=== PATIENT | male | born 1980 | race Caucasian/White ===

== ENCOUNTER 2017-06-04 19:32 | Emergency (ER) | payer OTHER ==
[~2017-06-04] VITALS: Ht 175.3 cm; Wt 78.7 kg
[2017-06-04 20:04] VITALS: BP 123/80; PULSE 100; TEMP 37; O2SAT 99; Ht 175.3 cm; Wt 78.7 kg
[2017-06-04] MEDS ORDERED: PROPARACAINE HCL 0.5% OP SOLN 15 ML BTL OP STA (20:13)
[2017-06-04] MEDS ORDERED: ARTIFICIAL TEARS OP OINT 3.5 GM TUBE OP ONE (21:45)
--- NOTE | 2017-06-05 01:08 | EMERGENCY ROOM VISIT NOTE ---
History First contact with patient: 20:10 Chief Complaint: EYE ASSESSMENT Stated Complaint: USED MOTOR OIL GOT INTO LEFT EYE History of Present Illness The patient is a 36 year old male who presents to the Emergency Room with complaints of getting use motor oil in his left eye. The patient reports that this injury happened at work at approximately 1700. He was working underneath a vehicle with internal engine problems, and as he was draining the oil, it splashed onto his face. The patient did try to irrigate his eye. He is concerned because there was all kind of metal flakes in the oil. Other than a burning sensation of the eye and mild hazing shortly after exposure, he denies any significant pain. Tetanus immunization is up-to-date. Review of Systems 10 system review was performed and was negative except for pertinent positives and negatives as indicated in history of present illness Past Medical/Surgical History Medical Problems: (1) No significant past medical history Surgical Problems: (1) No history of previous surgery Family History Unremarkable Social History Smoking Status: Current Every Day Smoker Alcohol Use: occasionally Marital Status: single Occupation Status: employed Current/Historical Medications No Active Prescriptions or Reported Meds Physical Exam Vital Signs Date Time Temp Pulse Resp B/P (MAP) Pulse Ox O2 Delivery O2 Flow Rate FiO2 06/04/17 20:04 37.0 100 18 123/80 99 Room Air Right Eye Acuity: 20/15 Left Eye Acuity: 20/25 Physical Exam CONSTITUTIONAL: Healthy and well nourished. Alert and oriented X 3 with positive affect. Patient does not appear in any acute distress. HEENT: Patient has used motor oil mostly on the left side of his face. Pupils equal, round and reactive. No conjunctival injection or tearing/drainage from the eye. EOMs intact without discomfort. No subconjunctival hemorrhage. NECK: Full active range of motion without discomfort. RESPIRATORY: Clear to auscultation bilaterally with no wheezing, crackles, rhonchi or stridor. INTEGUMENTARY: No rash or other significant dermatologic conditions noted. NEUROLOGIC: Facial sensations are intact. Medical Decision & Procedures Medications Administered Medications (Trade) Dose Ordered Sig/Grover Route Start Time Stop Time Status Last Admin Dose Admin Proparacaine HCl (Alcaine 0.5% Oph Soln) 2 drops NOW STAT OP 06/04/17 20:13 06/04/17 20:15 DC 9/21/17 21:06 2 DROPS Artificial Tears (Lacri-Lube Oph Oint) 1 appln NOW ONCE OP 06/04/17 21:45 06/04/17 21:46 DC 06/04/17 21:45 1 APPLN Procedure Dayday lens irrigation was performed after presentation to his room. 2 drops of Alcaine were instilled into the eye before Dayday lens insertion. The eye was then irrigated using a liter of normal saline. Slit lamp and fluorescein exam did not show any evidence for corneal abrasions. No metallic foreign bodies are noted with eversion of the lower or upper eyelids. ED Course Patient history and physical exam were performed. Nurse's notes were reviewed. Vital signs were reviewed and were normal. Dayday lens irrigation was performed. Slit lamp and fluorescein exam were also performed and were normal. The patient was provided Lacri-Lube ointment for comfort. He was encouraged to intermittently apply an ice pack to the eye for swelling. Ibuprofen or Tylenol as needed for pain. The patient was provided contact information for Dr. Sen, yarn mercerizer operator clinical education academic coordinator should he have any persistent eye discomfort , visual demise or other concerns. The patient was happy with plan of care, and denied any discomfort at the time of discharge. Medical Decision Medication Reconcilliation Current Medication List: was personally reviewed by me Blood Pressure Screening Patient's blood pressure: Normal blood pressure Impression Primary Impression: Organic liquid splash to left eye Additional Impression: Work related injury Departure Information Prescriptions No Active Prescriptions or Reported Meds Referrals No Doctor, Assigned (PCP) Patient Instructions My [facility] Health Problem Qualifiers
== END 2017-06-04 21:53 | disposition home or self-care (01) ==
LOC: C.EDB 19:35 → C.EDD 21:53
DX: Z77.098 Contact with and (suspected) exposure to other hazardous, chiefly nonmedicinal, chemicals (principal); Y99.0 Civilian activity done for income or pay; F17.200 Nicotine dependence, unspecified, uncomplicated

== ENCOUNTER 2024-10-08 17:17 | Observation (INO) ==
--- OUTSIDE RECORDS SUMMARY | 2024-10-08 17:21 | External Medical Summary ---
Author Name Unknown Address Unknown Organization [id number]:[facility] [place] - [address] [place] [address] Laboratory Report Ordering Provider Test Date Status 06/15/2024 10:05:12 Final Observation Date Value Abnormality Reference (Units ) Status BUN 06/15/2024 10:05:12 10 6-20 (mg/dL) Final Creatinine 06/15/2024 10:05:12 1.0 0.6-1.2 (mg/dL) Final Glomerular filtration rate/1.73 sq M.predicted [Volume Rate/Area] in Serum, Plasma or Blood by Creatinine-based formula (CKD-EPI) 06/15/2024 10:05:12 >90 >=60 (mL/min) Final eGFR is calculated based on the CKD-EPI 2020 equation. Sodium 06/15/2024 10:05:12 140 135-146 (m mol/L) Final Potassium 06/15/2024 10:05:12 5.0 3.5-5.1 (m mol/L) Final Cl 06/15/2024 10:05:12 102 98-107 (mm ol/L) Final CO2 06/15/2024 10:05:12 28 22-32 (mmo l/L) Final Anion gap 06/15/2024 10:05:12 10 7-15 (mmol /L) Final Glucose 06/15/2024 10:05:12 97 70-120 (mg /dL) Final Albumin 06/15/2024 10:05:12 5.1 Above high normal 3. 8-5.0 (g/dL) Final AST (Aspartate aminotransferase) 06/15/2024 10:05:12 24 10-50 (U/L) Fin al Alk Phos 06/15/2024 10:05:12 75 35-130 (U/ L) Final Bilirubin, Total 06/15/2024 10:05:12 0.6 <=1 .2 (mg/dL) Final Calcium 06/15/2024 10:05:12 10.0 8.4-10.2 ( mg/dL) Final Protein 06/15/2024 10:05:12 7.1 6.0-8.3 (g /dL) Final ALT (Alanine aminotransferase) 06/15/2024 10:05:12 44 10-50 (U/L) Cristhian gould Performing Location [facility] [place] - [address] [facility] [address]
--- OUTSIDE RECORDS SUMMARY | 2024-10-08 17:21 | External Medical Summary | Summary of Care ---
Author Name Unknown Organization [facility] Address [address] [place] [address] Phone [phone] Care Team Providers Care Fbi Investigator Name Role Phone Unavailable Primary Care Provider Unavailabl e Reason for Referral * Evaluate & Treat - Unlimited Visits (Within 10 days (routine)) - Pending Review Specialty Diagnoses / Procedures Referred By Patsy snyder Referred To Contact Orthopaedic Surgery / Orthopedics Diagnoses Carpal tunnel syndrome of left wrist Paul Brandon MD [address] [place] [address] Referral ID Status Reason Start Date Expiration Date Visits Requested Visits Authorized [id number] Pending Review Specialty Services Required 06/15/[phone] Question Answer Referral Priority Within 10 days (routine) Where should this appointment be scheduled? [facility] What body part is the patient being seen for? Hand What condition is the patient being seen for? Weakness/Numbness/Tingling Comments Referred to Dr. Rod (orthopaedics surgery, hand) Reason for Visit * Reason Comments NEW PATIENT Pain L shoulder * Evaluate & Treat - Unlimited Visits (Within 10 days (routine)) - Pending Review Specialty Diagnoses / Procedures Referred By Patsy snyder Referred To Contact Sports Medicine / Orthopedics Diagnoses Chronic left shoulder pain Tremaine Daniels MD [address] [place] [address] Referral ID Status Reason Start Date Expiration Date Visits Requested Visits Authorized [id number] Pending Review Specialty Services Required 06/01/[phone] Encounter Details Date Type Department Care Team (Late st Contact Info) Description 06/15/2024 9:00 AM EDT Office Visit Orthopaedics [facility] [address] [place] [address] Paul Brandon MD [address] [place] [address] Carpal tunnel syndrome of left wrist*; Chronic left shoulder pain Allergies Active Allergy Reactions Criticality Noted Date Comments Penicillins 07/08/2001 Light headed documented as of this encounter (statuses as of 06/15/2024) Medications No known medicationsdocumented as of this encounter (statuses as of 06/15/2024) Active Problems Problem Noted Date Diagnosed Date Chronic left shoulder pain 08/07/2017 Rotator cuff syndrome of left shoulder 7 Alcohol ingestion, 1-4 drinks per day 05/15/2015 Tobacco use disorder 05/15/2015 Chews tobacco 05/15/2015 documented as of this encounter (statuses as of 06/15/2024) Resolved Problems Problem Noted Date Diagnosed Date Resolved Date Left shoulder pain 05/15/2015 7 Depression 05/15/2015 08/07/2017 ADVANCE DIRECTIVE INFORMATION 09/26/2005 08/07/2017 Tobacco use disorder 12/21/2004 015 documented as of this encounter (statuses as of 06/15/2024) Immunizations Name Administration Dates Next Due Pneumococcal Polysaccharide PPV23 (Pneumovax) 06/20/2011(Deferred: Patient Refused) TDAP (age 10 and older)(Boostrix) 04/18/2013 TDAP, Age 7 and older, IM (Adacel) 06/20/2011(De ferred: Patient Refused) documented as of this encounter Social History Tobacco Use Types Packs/Day Years Used Date Smoking Tobacco: Every Day Cigarettes 1 12 Smokeless Tobacco: Current Comments:began at age 14, Sm okes 1 pk a day, one can of snuff every 2 days Alcohol Use Standard Drinks/Week Comments Yes 0 (1 standard drink = 0.6 oz pur e alcohol) once a day, working on [employer] PHQ-2 Answer Date Recorded PHQ-2 Score 1 12/31/2018 Utilities Answer Date Recorded Do you have trouble paying y our heating, water, or electric bill? (Adult - for ages 18 years and over) Not on file 03/01/2024 Is your family able to pay t he heat, water, or electric bill? (Household - for ages 0-17 years) Not on file 03/01/2024 Does your family have access to good internet? (Household - for ages 0-17 years) Not on file 03/01/2024 Social Connections Answer Date Recorded How often do you feel lonely or isolated from those around you? (Adult - for ages 18 years and over) Not on file 03/01/2024 Sex and Gender Information Value Date Recorded Sex Assigned at Male 12/31/2018 8:48 AM EDT Gender Identity Male 12/31/2018 8:48 AM EDT Sexual Orientation Straight 12/31/2018 8: 48 AM EDT Job Start Date Occupation Industry Not on file Not on file Not on file documented as of this encounter Progress Notes * Paul Brandon MD - 06/15/2024 9:05 AM EDT Cornelio Park [id number] Cornelio Park is a 43 year old male who presents for consultation to [facility] for left shoulder and L hand paresthesias injury/pain. Consult requested by Tremaine Daniels MD. Cornelio Park is here unaccompanied History: Level of pain: reviewed and agree with Nursing Notes for HPI elements History - NEW Pt Pt c/o L shoulder pain x 7 yrs Pt was seen by Dr. Brandon years ago before Pt moved out of state Pt stated he really doesn't have pain as he does have discomfort Pt stated he has numbness and tingling in his L hand including thumb and #1 and #2 fingers Pt stated he feels he has a knot on the back side of his L scapula area in the muscle region Pt denies recent injections, sx or PT for his L shoulder Also note I had seen this patient previously for left shoulder pain, however, the most recent visitfor what was on 07/30/2018 which is nearly 6 years ago. I did perform a left-sided ultrasound-guided AC joint steroid injection for him on 01/11/2018 which worked well for him. He also was working with Dr. Sloan (Sports Chiropractor [facility]) at that time. Symptoms improved and he moved [facility]. He just returned to our area. 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 He does not plan on returning to that line of work though ROS: ROS per HPI otherwise non-contributory Past Medical History: Diagnosis Date Depression 2014 Kidney stone age 25 Family History Problem Relation Name Age of Onset Hypertension Father Hypertension Grandfather (Maternal) Hypertension Grandfather (Paternal) Social History Socioeconomic History Marital status: Spouse name: Not on file Number of children: Not on file Years of education: Not on file Highest education level: Not on file Occupational History Not on file Tobacco Use Smoking status: Every Day Current packs/day: 1.00 Average packs/day: 1 pack/day for 12.0 years (12.0 ttl pk-yrs) Types: Cigarettes Smokeless tobacco: Current Tobacco comments: began at age 14, Smokes 1 pk a day, one can of snuff every 2 days Substance and Sexual Activity Alcohol use: Yes Comment: once a day, working on 3rd DUI Drug use: No Comment: lots of caffeine Sexual activity: Yes Partners: Female Comment: no problems Other Topics Concern Not on file Social History 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 (Adult - for ages 18 years and over): Not on file Housing Stability: Not on file Physical Exam Constitutional: Generally well-nourished and in no acute distress Psychiatric: Mood and Affect normal Eyes: EOMI Respiratory: Normal respiratory effort with regular rate and rhythm Cardiovascular: No edema in the affected extremity (s) Shoulder Exam Inspection: Unremarkable Palpation: Tender palpate in the left periscapular region ROM: Forward Flexion (normal 180): L - 180, R - 180 Abduction (normal 180): L - 180, R - 180 External Rotation at 90 Abduction: L - 90, R - 90 Internal rotation at 90 Abduction: L - 90, R - 90 External rotation at 0: L - 70, R - 70 Internal Rotation: T7 12 No significant pain with range of motion of the shoulder Strength: Forward flexion: L - 5/5, R - 5/5 Abduction: L - 5/5, R - 5/5 External Rotation: L - 5/5, R - 5/5 Internal Rotation: L - 5/5, R - 5/5 Special Tests: Motor to Distal AIN, PIN, Medial, Radial, Ulnar: Intact Bilateral Negative impingement testing Wrist Exam, Bilateral Inspection: No apparent abnormality appreciated bilateral Palpation: ROM: Flex (normal 80): L - 80, R - 80 Extension (normal 70): L - 70, R - 70 Radial deviation (normal 20): L - 20, R - 20 Ulnar deviation (normal 20): L - 20, R - 20 Strength: Crystal Gazer: L - Normal, R - Normal Finger Spread: Extension: L - 5/5, R - 5/5 Flexion: L - 5/5, R - 5/5 Carpal Tunnel Specific Examination CTS-6 Evaluation tool: (26 total possible points): Left only Symptoms and History: 1. Numbness predominantly or exclusively in the median nerve territory (3.5 possible points) (patient score: 3.5 ) 2. Nocturnal numbness (4 possible points) (patient score: 4 ) Physical Examination: 3. Thenar atrophy and or weakness - testing of abduction of thumb (5 possible points) (patient score: ?+ on R) 4. Positive Phalen's test (5 possible points) (patient score: 5) 5. Loss of 2 point discrimination - tested 5 mm or less apart in median innervated digits (4.5 possible points) (patient score: not performed ) 6. Positive Tinel sign (4 possible points) (patient score: 4 ) Patient total score: 16.5-21.5 (without performing two point discrimination) Note: total score >12 = 0.80 probability of carpal tunnel syndrome, >5 = 0.25 probability of carpal tunnel syndrome Note: Strength tested with abduction of the thumb as well as radial deviation of the index finger. Strength 5/5 in both. Radiology: None obtained today Assessment and Plan: 1) L shoulder pain Pain is located in the periscapular region and I am uncertain if it is being more driven by cervical thoracic pathology or shoulder pathology. Recommended rehabilitation either through chiropractor or physical therapist He plans to contact her chiropractor Based on those treatments he will then follow up with me if needed Also note I had seen this patient previously for left shoulder pain, however, the most recent visitfor what was on 07/30/2018 which is nearly 6 years ago. I did perform a left-sided ultrasound-guided AC joint steroid injection for him on 01/11/2018 which worked well for him. He also was working with Dr. Sloan ([facility] Chiropractor [facility]) at that time. Symptoms improved and he moved [facility]. He just returned to our area. 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 He does not plan on returning to that line of work though 2) left hand paresthesias Strongly suspect carpal tunnel Thenar eminence is larger on right than on the left and I question if there is a component of atrophy however he is right handed and was a motorboat mechanic and therefore his right may just be larger Carpal tunnel brace which he is to wear every night for sleep for the next 4 weeks and until re-evaluated in the office Discussed options for follow-up Given I do question a component of atrophy I recommended consultation with Dr. Rod (orthopaedicssurgery, hand) in discussed with the patient that additional treatment options if he does not have substantial improvement with the bracing would include injections or surgery if he agrees with my suspected diagnosis of carpal tunnel syndrome Paul Brandon MD Primary Care Sports Medicine Orthopaedics [address] [address] documented in this encounter Nursing Notes * Roseanna Taylor, STACEY - 06/15/2024 8:46 AM EDT NEW Pt Pt c/o L shoulder pain x 7 yrs Pt was seen by Dr. Brandon years ago before Pt moved out of state Pt stated he really doesn't have pain as he does have discomfort Pt stated he has numbness and tingling in his L hand including thumb and #1 and #2 fingers Pt stated he feels he has a knot on the back side of his L scapula area in the muscle region Pt denies recent injections, sx or PT for his L shoulder Pt is unaccompanied Priti Paige LPN documented in this encounter Plan of Treatment Upcoming Encounters Date Type Department Care Team (Late st Contact Info) Description 07/29/2024 2:30 PM EST Office Visit Orthopaedics [facility] [address] [place] [address] Caleb Rod MD [address] [place] [address] 06/07/2025 4:00 PM EDT Office Visit [facility] [address] [place] [phone] JanuaryTremaine MD [address] [place], [place] [id number] Scheduled Referrals Name Type Priority Associated Diagnoses Order Schedule ORTHOPAEDICS REFERRAL OP Referral Within 10 days (routine) Carpal tunnel syndrome of left wrist Ordered: 06/15/2024 Health Maintenance Due Date Last Done Comments Lipid Panel 1982 Pneumococcal Vaccine: Pediatrics (0 to 5 Years) and At-Risk Patients (6 to 64 Years) (1 of 2 - PCV) 1988 HIV Screening 1997 Hepatitis C Screening 2000 Depression Screening 01/01/2020 12/31/2018, 08/07/20 17 DTap/Tdap Vaccines (8 - Td or Tdap) 04/18/2023 04/18/2013, 03/18/1995, 01/09/1988, Additional history exists COVID-19 Vaccine ( - season) 2024 Influenza Vaccine (FLU shot) (#1) 2024 Diabetes Screening 09/13/2024 09/13/2021, 04/11/2004 Hepatitis B Vaccine Completed 06/12/1999, 12/28/1998, 11/28/1998 HPV (Gardasil) Vaccine Aged Out No lo nger eligible based on patient's age to complete this topic MENINGOCOCCAL (MENACTRA/MENVEO) Aged Out No longer eligible based on patient's age to complete this topic documented as of this encounter Medical Devices Not on filedocumented as of this encounter Visit Diagnoses Diagnosis Carpal tunnel syndrome of left wrist- Primary Carpal tunnel syndrome Chronic left shoulder pain Pain in joint, shoulder region documented in this encounter
--- OUTSIDE RECORDS SUMMARY | 2024-10-08 17:21 | External Medical Summary | Summary of Care ---
Author Name Unknown Organization [facility] Address [address] [place] [address] Phone [phone] Care Team Providers Care Temperature Inspector Name Role Phone Unavailable Primary Care Provider Unavailabl e Reason for Referral * Evaluate & Treat - Unlimited Visits (Within 10 days (routine)) - Pending Review Specialty Diagnoses / Procedures Referred By Patsy snyder Referred To Contact Orthopaedic Surgery / Orthopedics Diagnoses Carpal tunnel syndrome of left wrist Paul Brandon MD [address] [place] [id number] Referral ID Status Reason Start Date Expiration Date Visits Requested Visits Authorized [id number] Pending Review Specialty Services Required 06/15/2024 999 [...] shoulder pain Tremaine Daniels MD [address] [place] [address] Referral ID Status Reason Start Date Expiration Date Visits Requested Visits Authorized [id number] Pending Review Specialty Services Required 06/01/2024 999 999 Encounter Details Date Type Department Care Team (Late st Contact Info) Description 06/15/2024 9:00 AM EDT Office Visit Orthopaedics [facility] [address] [place] [address] Paul Brandon MD [address] [place] [address] Carpal tunnel syndrome of left wrist*; Chronic left shoulder pain Allergies Active Allergy Reactions Criticality Noted Date Comments Penicillins 07/08/2001 Light headed documented as of this encounter (statuses as of 06/16/2024) Medications No known medicationsdocumented as of this encounter (statuses as of 06/16/2024) Active Problems Problem Noted Date Diagnosed Date Chronic left shoulder pain 08/07/2017 Rotator cuff syndrome of left shoulder 7 Alcohol ingestion, 1-4 drinks per day 05/15/2015 Tobacco use disorder 05/15/2015 Chews tobacco 05/15/2015 documented as of this encounter (statuses as of 06/16/2024) Resolved Problems Problem Noted Date Diagnosed Date Resolved Date Left shoulder pain 05/15/2015 7 Depression 05/15/2015 08/07/2017 ADVANCE DIRECTIVE INFORMATION 09/26/2005 08/07/2017 Tobacco use disorder 12/21/2004 015 documented as of this encounter (statuses as of 06/16/2024) Immunizations Name Administration Dates Next Due DT - Diptheria/Tetanus (PEDS) 03/18/1995 DTaP HIB - Dipth/Tet/Acell Pert/HIB 12/14,10/15/1984,06/20/1983,03/28,01/23/1983 Hepatitis B, 0-19 yrs 06/12/1999,12/28/1998,11/12 MMR - Measles/Mumps/Rubella Vaccine 01/27/1996,0 04/06/1984 OPV - Polio Virus Vaccine (Oral) 988,10/15/1984,03/28/1983,01/23 PPD 12/01/1983 Pneumococcal Polysaccharide PPV23 (Pneumovax) 06/20/2011(Deferred: Patient Refused) TDAP (age 10 and older)(Boostrix) 04/18/2013 TDAP, Age 7 and older, IM (Adacel) 06/20/2011(De pool: Patient Refused) documented as of this encounter [...] e alcohol) once a day, working on DUI PHQ-2 Answer Date Recorded PHQ-2 Score 1 [...] - 06/15/2024 9:05 AM EDT Cornelio Park [id number] Cornelio Park is a 43 year old male who presents for consultation to [facility] for left shoulder and L hand paresthesias injury/pain. Consult requested by Tremaine Daniels MD. Cornelioclaudio Park is here unaccompanied History: Level of [...] was working with Dr. Sloan ([facility]rop[facility]) at that time. Symptoms improved and he moved [facility]. He just returned to our area. 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 Sloan (Sports Chiropractor [facility]) at that time. Symptoms improved and he moved [facility]. He just returned to our area. 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 He does not plan on returning to that line of work though 2) left hand paresthesias Strongly suspect carpal tunnel Thenar eminence is larger on right than on the left and I question if there is a component of atrophy however he is right handed and was a diesel mechanic helper and therefore his right may just be [...] Brandon MD Primary Care Sports Medicine Orthopaedics [facility] [address] [place] [address] documented in this encounter Nursing Notes * Roseanna Taylor LPN - 06/15/2024 8:46 AM EDT NEW Pt [...] Priti Paige LPN documented in this encounter Miscellaneous Notes * Addendum Note - Roseanna Taylor LPN - 06/16/2024 2:56 PM EDTAddended by: ROSEANNA TAYLOR on: 06/16/2024 02:56 PM Modules accepted: Orders documented in this encounter Plan of Treatment Upcoming Encounters Date Type Department Care Team (Late st Contact Info) Description 07/29/2024 2:30 PM EST Office Visit Orthopaedics [facility] [address] [place] [address] Caleb Rod MD [address] [place] [address] 06/07/2025 4:00 PM EDT Office Visit [address] [place] [address] Tremaine Daniels MD [address] [place] [address] Scheduled Referrals Name Type Priority Associated Diagnoses Order Schedule ORTHOPAEDICS REFERRAL OP Referral Within 10 days (routine) Carpal tunnel syndrome of left wrist Ordered: 06/15/2024 Health Maintenance Due Date Last Done Comments Pneumococcal Vaccine: Pediatrics (0 to 5 Years) and At-Risk Patients (6 to 64 Years) (1 of 2 - PCV) 1988 HIV Screening 1997 Hepatitis C Screening 2000 Depression Screening 01/01/2020 12/31/2018, 08/07/20 17 DTap/Tdap Vaccines (8 - Td or Tdap) 04/18/2023 04/18/2013, 03/18/1995, 01/09/1988, Additional history exists COVID-19 Vaccine ( - season) 2024 Influenza Vaccine (FLU shot) (#1) 2024 Diabetes Screening 06/15/2027 06/15/2024, 1 , 09/13/2021, Additional history exists Lipid Panel 06/15/2029 06/15/2024 Hepatitis B Vaccine Completed 06/12/1999, 12/28/1998, 11/28/1998 [...]
--- OUTSIDE RECORDS SUMMARY | 2024-10-08 17:21 | External Medical Summary | Summary of Care ---
Author Name Unknown Organization [facility] Address [address] [place] [address] Phone [phone] Care Team Providers Care Hvac Designer Name Role Phone Unavailable Primary Care Provider Unavailabl e Reason for Visit * Reason Comments Outpatient Testing Encounter Details Date Type Department Care Team (Late st Contact Info) Description 06/15/2024 10:10 AM EDT Laboratory Laboratory, [facility] [address] [place] [address] [facility] [address] [place] [address] Screening for diabetes mellitus; Screening for deficiency anemia; Screening for lipid disorders Allergies Active Allergy Reactions Criticality Noted Date [...] Age 7 and older, IM (Adacel) 06/20/2011(De tamid: Patient Refused) documented as of this encounter [...] on file documented as of this encounter Plan of Treatment Upcoming Encounters Date Type Department Care Team (Late st Contact Info) Description 07/29/2024 2:30 PM EST Office Visit Orthopaedics [facility] [address] [place] [address] Caleb Rod MD [address] [address] 06/07/2025 4:00 PM EDT Office Visit [place] [address] [place] [facility] [place] [phone] JanuaryTremaine MD [address] [place] [facility] [place] [address] Pending Results Name Type Priority Associated Diagnoses Date /Time COMPREHENSIVE METABOLIC PANEL Lab Routine Screening for diabetes mellitus 06/15/2024 10:05 AM EDT CBC WITH WBC DIFFERENTIAL Lab Routine Screening for deficiency anemia 06/15/2024 10:05 AM EDT LIPID PANEL WITH DIRECT LDL IF TG IS HIGH Lab Routine Screening for lipid disorders 06/15/2024 10:05 AM EDT HEMOGLOBIN A1C Lab Routine Screening for diabetes mellitus 06/15/2024 10:05 AM EDT CBC Lab Routine Screening for deficiency anemia 06/15/2024 10:05 AM EDT DIFFERENTIAL, AUTOMATED Lab Routine Screening for deficiency anemia 06/15/2024 10:05 AM EDT Health Maintenance Due Date Last Done Comments Lipid Panel 1982 Pneumococcal Vaccine: Pediatrics (0 to 5 Years) and At-Risk Patients (6 to 64 Years) (1 of 2 - PCV) 1988 HIV Screening 1997 Hepatitis C Screening 2000 Depression Screening 01/01/2020 12/31/2018, 08/07/20 17 DTap/Tdap Vaccines (8 - Td or Tdap) 04/18/2023 04/18/2013, 03/18/1995, 01/09/1988, Additional history exists COVID-19 Vaccine ( season) 2024 Influenza Vaccine (FLU shot) (#1) [...] as of this encounter Visit Diagnoses Diagnosis Screening for diabetes mellitus Screening for deficiency anemia Screening for other and unspecified deficiency anemia Screening for lipid disorders documented in this encounter
--- OUTSIDE RECORDS SUMMARY | 2024-10-08 17:21 | External Medical Summary ---
Author Name Unknown Address Unknown Organization K01:[facility]ORY [place] [address] [address] [place] [address] Laboratory Report Ordering Provider Test Date Status 06/15/2024 10:05:12 Final Observation Date Value Abnormality Reference (Units ) Status SYNC LEUKOCYTES IN BLOOD BY AUTOMATED COUNT 06/15/2024 10:05:12 5.72 4.00-10.80 (K/uL) Final Segs 06/15/2024 10:05:12 55.3 40.0-75.0 (%) Final Lymphs % 06/15/2024 10:05:12 33.9 18.0-42.0 (%) Final Monos 06/15/2024 10:05:12 8.6 1.0-11.0 (%) Final Eosinophils 06/15/2024 10:05:12 1.4 0.0-6.0 (%) Final Basos 06/15/2024 10:05:12 0.5 0.0-2.0 (%) Final Immature Granulocyte, Percent 06/15/2024 10:05:12 0.3 0.0-2.0 (%) Final Absolute Segs 06/15/2024 10:05:12 3.16 1.80-7.70 (K/uL) Final Lymphs, absolute 06/15/2024 10:05:12 1.94 1.00-4.80 (K/ul) Final Monos, Abs 06/15/2024 10:05:12 0.49 0.00-1.10 (K/uL) Final Eos, Abs 06/15/2024 10:05:12 0.08 0.00-0.70 (K/uL) Final Basos, Abs 06/15/2024 10:05:12 0.03 0.00-0.20 (K/uL) Final Immature Granulocytes, Number 06/15/2024 10:05:12 0.02 0.00-0.20 (K/uL) Final Performing Location [facility] - [address] [facility] [address]
--- OUTSIDE RECORDS SUMMARY | 2024-10-08 17:21 | External Medical Summary | Summary of Care ---
Author Name Unknown Organization [facility] Address [address] [place] [address] Phone [phone] Care Team Providers Care Clearance Cutter Name Role Phone Unavailable Primary Care Provider Unavailabl e Reason for Visit * Reason Onset Date Comments MyCode Nonconsent - Not interested at this time 06/23/2024 Encounter Details Date Type Department Care Team (Late st Contact Info) Description 06/15/2024 Orders Only Outcomes Research Department [address] [place], [place] [id number] Urmila Shepard CHRA MyCode Nonconsent Documentation Allergies Active Allergy Reactions Criticality Noted Date Comments Penicillins 07/08/2001 Light headed documented as of this encounter (statuses as of 06/23/2024) Medications No known medicationsdocumented as of this encounter (statuses as of 06/23/2024) Active Problems Problem Noted Date Diagnosed Date Chronic left shoulder pain 08/07/2017 Rotator cuff syndrome of left shoulder 7 Alcohol ingestion, 1-4 drinks per day 05/15/2015 Tobacco use disorder 05/15/2015 Chews tobacco 05/15/2015 documented as of this encounter (statuses as of 06/23/2024) Resolved Problems Problem Noted Date Diagnosed Date Resolved Date Left shoulder pain 05/15/2015 7 Depression 05/15/2015 08/07/2017 ADVANCE DIRECTIVE INFORMATION 09/26/2005 08/07/2017 Tobacco use disorder 12/21/2004 015 documented as of this encounter (statuses as of 06/23/2024) Immunizations Name Administration Dates Next Due Pneumococcal [...] e alcohol) once a day, working on 3rd We[employer] PHQ-2 Answer Date Recorded PHQ-2 Score 1 [...] as of this encounter Progress Notes * Urmila Shepard CHRA - 06/23/2024 8:51 AM EDT MyCode Nonconsent Documentation Cornelio Park was approached in the clinic regarding participation in the MyCode Project and did not consent. documented in this encounter Plan of Treatment Upcoming Encounters Date Type Department Care Team (Late st Contact Info) Description 07/29/2024 2:30 PM EST Office Visit Orthopaedics [address] [place] [address] Caleb Rod MD [address] [place] [address] 06/07/2025 4:00 PM EDT [facility] [address] [facility] [address] January, Tremaine Baca MD [address], [place] [phone] Health Maintenance Due Date Last Done Comments [...]
--- OUTSIDE RECORDS SUMMARY | 2024-10-08 17:21 | External Medical Summary ---
Author Name Unknown Address Unknown Organization K01[facility] [address] [facility] [place] [address] Laboratory Report Ordering Provider Test Date Status 06/15/2024 10:05:12 Final Observation Date Value Abnormality Reference (Units ) Status Triglyceride 06/15/2024 10:05:12 74 <=174 ( mg/dL) Final Triglyceride Reference Range s (mg/dL):
<150 Acceptable
150-174 Borderline high
175-499 High
>=500 Very high Cholesterol 06/15/2024 10:05:12 221 Above high normal <200 (mg/dL) Final Total Cholesterol Reference Ranges (mg/dL):
<200 Desirable
200-239 Borderline high
>=240 High HDL 06/15/2024 10:05:12 52 >39 (mg/dL ) Final HDL Cholesterol Reference Ra nges (mg/dL):
>=60 High (Desirable)
<50 Low (Undesirable) For Females
<40 Low (Undesirable) For Males NON-HDL CHOLESTEROL 06/15/2024 10:05:12 169 Above high normal <=159 (mg/dL) Final Non-HDL Cholesterol Referenc e Range (mg/dL):
<100 Target level for high risk ASCVD patient
<130 Optimal for general population
130-159 Near optimal for general population
160-189 Borderline High
190-219 High
>=220 Very High LDL, (calculated) 06/15/2024 10:05:12 154 Above high n ormal <=129 (mg/dL) Final LDL Cholesterol Reference Ra nges (mg/dL):
<70 Target level for high risk ASCVD patient
<100 Optimal for general population
100-129 Near optimal for general population
130-159 Borderline high
160-189 High
>=190 Very high Performing Location LABORATORY [facility] - [address] [facility] [address]
--- OUTSIDE RECORDS SUMMARY | 2024-10-08 17:21 | External Medical Summary ---
Author Name Unknown Address Unknown Organization K01:[facility] - [address] [place] [address] Laboratory Report Ordering Provider Test Date Status 06/15/2024 10:05:12 Final Observation Date Value Abnormality Reference (Units ) Status HbA1C 06/15/2024 10:05:12 5.0 4.0-5.6 (% ) Final The use of HbA1c to monitor glycemic status is based on normal hemoglobin and HbA composition. This test should not be used in patients with abnormal hemoglobin that affects the half life of the red blood cell or the in vivo glycation rates. Glucose, estimated average 06/15/2024 10:05:12 97 <126 (mg/dL) Final Performing Location [facility] - [address] [place] [address]
--- OUTSIDE RECORDS SUMMARY | 2024-10-08 17:21 | External Medical Summary | Summary of Care ---
Author Name Unknown Organization [facility] Address [address] [place] [facility] [place] [address] Phone [phone] Care Team Providers Care Genetics Nurse Name Role Phone Unavailable Primary Care Provider Unavailabl e Encounter Details Date Type Department Care Team (Late st Contact Info) Description 07/06/2024 Telephone [facility] [address] [place] [address] January, Tremaine Baca MD [address] [place] [address] Allergies Active Allergy Reactions Criticality Noted Date Comments Penicillins 07/08/2001 Light headed documented as of this encounter (statuses as of 07/06/2024) Medications No known medicationsdocumented as of this encounter (statuses as of 07/06/2024) Active Problems Problem Noted Date Diagnosed Date Chronic left shoulder pain 08/07/2017 Rotator cuff syndrome of left shoulder 7 Alcohol ingestion, 1-4 drinks per day 05/15/2015 Tobacco use disorder 05/15/2015 Chews tobacco 05/15/2015 documented as of this encounter (statuses as of 07/06/2024) Resolved Problems Problem Noted Date Diagnosed Date Resolved Date Left shoulder pain 05/15/2015 7 Depression 05/15/2015 08/07/2017 ADVANCE DIRECTIVE INFORMATION 09/26/2005 08/07/2017 Tobacco use disorder 12/21/2004 015 documented as of this encounter (statuses as of 07/06/2024) Immunizations Name Administration Dates Next Due Pneumococcal [...] alcohol) once a day, working on 3rd Utrip PHQ-2 Answer Date Recorded PHQ-2 Score 1 [...] on file documented as of this encounter Miscellaneous Notes * Telephone Encounter - Billie Knox LPN - 07/06/2024 10:35 AM EDT Attempted to call patient, unable to leave message, sent letter * Telephone Encounter - Billie Knox LPN - 07/06/2024 10:32 AM EDT ----- Message from Tremaine Daniels MD sent at 06/15/2024 7:34 PM EDT ----- Lab work shows normal kidney and liver function. No diabetes. Normal blood count. Cholesterol is elevated. Recommend focusing on diet and exercise to help these numbers improve. No medications neededat this time. Tremaine Daniels MD documented in this encounter Plan of Treatment Upcoming Encounters Date Type Department Care Team (Late st Contact Info) Description 07/29/2024 2:30 PM EST Office Visit Orthopaedics [facility] [address] [facility] [place] [address] Caleb Rod MD [address] [place] [address] 06/07/2025 4:00 PM EDT Office Visit [facility] [address] [place] [phone] Tremaine Daniels MD [address], [place] [phone] Health Maintenance Due Date Last Done Comments [...]
--- OUTSIDE RECORDS SUMMARY | 2024-10-08 17:21 | External Medical Summary ---
Author Name Unknown Address Unknown Organization K01:LABORATORY [facility] - [facility] [address] [facility] [address] [place] [address] Laboratory Report Ordering Provider Test Date Status 06/15/2024 10:05:12 Final Observation Date Value Abnormality Reference (Units ) Status WBC, Total 06/15/2024 10:05:12 5.72 4.00-10.80 (K/uL) Final RBC 06/15/2024 10:05:12 5.14 4.50-5.25 (M/uL) Final Hemoglobin 06/15/2024 10:05:12 16.1 14.0-16.8 (g/dL) Final HCT 06/15/2024 10:05:12 48.3 40.0-48.4 (%) Final MCV 06/15/2024 10:05:12 94.0 82.0-99.5 (fL) Final MCH 06/15/2024 10:05:12 31.3 27.0-34.0 (pg) Final MCHC 06/15/2024 10:05:12 33.3 32.0-36.0 (g/dL) Final RDW 06/15/2024 10:05:12 11.9 11.5-15.5 (%) Final Platelets 06/15/2024 10:05:12 288 140-400 (K/uL) Final MPV 06/15/2024 10:05:12 10.7 6.6-11.1 (fL) Final Nucleated erythrocytes/100 leukocytes [Ratio] in Blood by Automated count 06/15/2024 10:05:12 0 <=0 (/100 WBCs) Final Performing Location LAB[facility]ATORY [facility] [address] [facility] [address] [address] [place] [address]
--- OUTSIDE RECORDS SUMMARY | 2024-10-08 17:21 | External Medical Summary | Summary of Care ---
Author Name Unknown Organization [facility] Address [address] [place] [address] Phone [phone] Care Team Providers Care Supervisor Finishing Name Role Phone Unavailable Primary Care Provider Unavailabl e Reason for Visit * Reason Onset Date Comments TRIAGE 06/09/2024 Encounter Details Date Type Department Care Team (Late st Contact Info) Description 06/09/2024 Telephone Ophthalmology, [facility] [address] [facility] [place] [id number] Services, Scheduling [address] [place] [address] TRIAGE Allergies Active Allergy Reactions Criticality Noted Date Comments Penicillins 07/08/2001 Light headed documented as of this encounter (statuses as of 09/08/2024) Medications No known medicationsdocumented as of this encounter (statuses as of 09/08/2024) Active Problems Problem Noted Date Diagnosed Date Chronic left shoulder pain 08/07/2017 Rotator cuff syndrome of left shoulder 7 Alcohol ingestion, 1-4 drinks per day 05/15/2015 Tobacco use disorder 05/15/2015 Chews tobacco 05/15/2015 documented as of this encounter (statuses as of 09/08/2024) Resolved Problems Problem Noted Date Diagnosed Date Resolved Date Left shoulder pain 05/15/2015 7 Depression 05/15/2015 08/07/2017 ADVANCE DIRECTIVE INFORMATION 09/26/2005 08/07/2017 Tobacco use disorder 12/21/2004 015 documented as of this encounter (statuses as of 09/08/2024) Immunizations Name Administration Dates Next Due Pneumococcal [...] alcohol) once a day, working on 3rd HightowerI PHQ-2 Answer Date Recorded PHQ-2 Score 1 [...] Assigned at Male 12/31/2018 8:48 AM EDT Legal Sex Male 7:01 AM EST Gender Identity Male 12/31/2018 8:48 AM EDT Sexual Orientation Straight 12/31/2018 8: 48 AM EDT documented as of this encounter Miscellaneous Notes * Telephone Encounter - Disha Moya LPN - 06/09/2024 3:12 PM EDT Spoke with patient. Advised that he go to Acute clinic in [place] or contact his regular camera repair technician. Patient stated he was not going to [place] and he did not have an camera repair technician. I gave him the number for [facility]. * Telephone Encounter - Kendrick Mcnally OSA - 06/09/2024 2:40 PM EDT Images from the original note were not included. [place] text sent to [place] pt declined [place] acute Who is calling? pt Best way to reach patient or person calling, if call back needed by nurse or physician: [phone] Patient complaint/concern: piece of metal in left eye after using a grinder lap Location: Left eye How long has it been going on: 1 days Timing: constant Associated symptoms: pain and redness,irritation If having pain, have patient rate pain on a scale from 0 to 10 (10 being the worst pain ever) irritation Characterization- intermittent / Scale- [place] ONLY: NOTIFY PATIENT: PLEASE ALLOW US UP TO 48 HOURS FOR A RESPONSE *Person filling out this form: Once form completed, please route to p [phone] (triage nurse pool) . Please let patient know you have sent symptoms for triage and someone will reach out to patient with further instruction. Physician or nurse will triage & reply with instruction to appropriate pools as listed below. Thank you! *Physicians triaging patient, please reply to: -If only instructions needed- NO appointment scheduling needed, please route to p [phone] (triage nurse pool). -If instructions AND appointment needed, please route to p [phone] (triage nurse pool) and p [phone] (receptionist scheduler pool). [place] ONLY: Route all messages to P [phone] [facility] Ophthalmology triage pool NOTIFY PATIENT: PLEASE ALLOW US UP TO 48 HOURS FOR A RESPONSE [place]: NOTIFY PATIENT: PLEASE ALLOW US UP TO 48 HOURS FOR A RESPONSE documented in this encounter Plan of Treatment Upcoming Encounters Date Type Department Care Team (Late st Contact Info) Description 06/07/2025 4:00 PM EDT [facility] [address] [place] [address] January, Tremaine Baca MD [address] [place] [address] Health Maintenance Due Date Last Done Comments HIV Screening 1997 Hepatitis C Screening 2000 Pneumococcal Vaccine: Pediatrics (0 to 5 Years) and At-Risk Patients (6 to 18 Years and 19+ Years) (1 of 2 - PCV) 2001 Depression Screening 01/01/2020 12/31/2018, 08/07/20 17 DTap/Tdap [...]
[2024-10-08] MEDS: HYDROmorphone INJ 1 MG/ML SYRINGE IV STA (17:40)
--- NOTE | 2024-10-08 17:40 | Emergency Department Note ---
Impression & Plan Fall from standing, Comminuted fracture of shaft of fibula, Comminuted fracture of shaft of tibia ED Provider Note HISTORY OF PRESENT ILLNESS: Patient is a 43-year-old male presenting with left leg pain. Patient reports that he was getting something out of the bed of his truck when he turned to go back inside his house and he slipped on a bit of ice, losing his balance and states that he planted his left leg on the ground and seemed to twist his body and fall, landing on his buttock and low back. He denies striking his head or loss of consciousness. He is not on any medications, including any anticoagulants. He reports immediate pain and deformity to the left lower leg. Currently complaining of pain at the distal left tibia and left ankle. He was given a total of 30 mg of ketamine prehospital and 4 mg of IV Zofran. Patient denies any significant numbness or tingling in the leg. ROS: as above PHYSICAL EXAM: Constitutional: Patient appears in no acute distress. HENT: Head: Normocephalic and atraumatic. Eyes: EOMI, PERRL Mouth/Throat: Mucous membranes moist. Neck: Trachea midline. Neck supple. Cardiovascular: RRR, No murmurs, rubs or gallops. Intact distal pulses. Pulmonary/Chest: No respiratory distress. Breath sounds clear and equal bilaterally. No wheezes or rales. Abdominal: Abdomen soft, no tenderness, rebound or guarding. Musculoskeletal: - LLE: Obvious deformity to the mid shaft of the anterior tibial. Patient is able to wiggle toes and slightly dorsiflex and plantarflex the ankle, but complains of pain. No open wounds. He has significant swelling to the mid anterior tibia. Intact DP and PT pulses. Good cap refill in all 5 toes. Sensation intact to light touch in the foot. Skin: Warm and dry. No rash, erythema, pallor or cyanosis Psychiatric: Appropriate mood and affect for situation. Neurological: Alert and keenly responsive. CN II-XII grossly intact, moving all extremities equally and fully. MDM: - Vitals signs showed hypertension and tachycardia. - History obtained via patient. History as above. - Chronic conditions affecting care: None - Differential diagnoses include, but are not limited to: Ankle fracture; ankle dislocation; distal fibula fracture; distal tibial fracture; contusion; ankle sprain - Order placed for continuous cardiac monitoring. At this time, monitor showed rate of 95 bpm with normal sinus rhythm, per my interpretation. - External medical records reviewed. - Patient's leg was extremely unstable after being taken out of the splint applied by EMS. He was splinted prior to his x-rays being obtained. He was initially given 1 mg of IV Dilaudid. Post splint placement, the patient was given 1 g of IV Tylenol. Patient was placed in a posterior short leg splint with an ankle stirrup that extended up to the knee. A splint was applied by myself, nursing staff at bedside and technical maintenance technician. - Pre op EKG interpreted by myself showed normal sinus rhythm. Rate 97 bpm. QT 344. No acute ischemic changes. - Laboratory workup interpreted by myself showed slight leukocytosis (WBC 11.19); normal PT/INR; stable electrolytes - CXR negative for pneumothorax or pneumonia, per my interpretation - Xray left tib-fib showed comminuted fractures of the distal tibia and fibula, per my interpretation. - Xray left ankle negative for any fracture or dislocation of the ankle joint, but again noted to have the comminuted fractures of the distal tibia and fibula. - Discussed case with orthopedic surgeon on-call, Dr. Ventura, at 18:26. He recommended the patient be made n.p.o. at midnight and plan for surgery tomorrow. Recommended admission to the medicine service. - Discussion was had with foster care case manager about patient's case and need for admission - Hospitalist, Dr. Martínez, consulted for admission - [facility] for further evaluation and management. PROCEDURE: Splinting Indication: comminuted distal left tibia and fibula fractures Verbal consent obtained. Risks and benefits were explained with the usual customary discussion. The injured extremity was identified. The patient was prepped and measured for the placement of a posterior short leg ankle and ankle stirrup ortho-glass splints. Splint applied in the standard fashion over a layer of webril and secured using an elastic bandage. Set into a position of function. Normal neurovascular status after placement verified by me. The patient tolerated the procedure well and the care of the splint was discussed with the patient/family. No complications. ASSESSMENT AND PLAN: Diagnosis: Fall from standing; Comminuted fracture of shaft of fibula; comminuted fracture of shaft of left tibia Plan: Admit Past Med/Surg History Problem List (Updated 10/08/24 @ 19:29 by Jojo Johnson MD) Comminuted fracture of shaft of tibia (Acute) Comminuted fracture of shaft of fibula (Acute) Fall from standing (Acute) Work related injury (Acute) Social History Smoking Status: Current every day smoker Tobacco Type: E-cigarettes / Vaping Preferred Language: Arabic Feels Safe at Home: Yes Allergies Allergies Allergy/AdvReac Type Severity Reaction Status Date / Time bee venom protein (honey bee) Allergy Intermediate "EXTREME" Verified 10/08/24 19:08 SWELLING AT SITE OF STING. Home Meds Home Medications Medication Instructions Recorded Confirmed No Known Home Medications 10/08/24 10/08/24 Results & Data (ED) Vital Signs Vital Signs - 24 hr 10/08/24 17:20 10/08/24 17:20 10/08/24 17:38 Temperature 36.9 C Temperature Source Oral Pulse Rate 86 92 H Pulse Rate from SpO2 Sensor Respiratory Rate 20 Respiratory Effort / Characteristics Non-Labored Respiratory Depth Normal Blood Pressure 141/107 H Blood Pressure Mean 118 Pulse Oximetry 96 Oxygen Delivery Method Room Air Room Air Sepsis Recent Fever Within 48 Hours No Sepsis New/Unexplained Change in Mental Status No Sepsis Action Taken by Nursing No Action Required 10/08/24 18:03 Temperature Temperature Source Pulse Rate 95 H Pulse Rate from SpO2 Sensor 97 H Respiratory Rate 17 Respiratory Effort / Characteristics Respiratory Depth Blood Pressure Blood Pressure Mean Pulse Oximetry 97 Oxygen Delivery Method Room Air Sepsis Recent Fever Within 48 Hours Sepsis New/Unexplained Change in Mental Status Sepsis Action Taken by Nursing Laboratory Data 10/08/24 17:58 10/08/24 17:58 Lab Results 10/08/24 Range/Units 17:58 WBC 11.19 H (4.8-10.8) K/ul RBC 4.99 (4.70-6.10) M/uL Hgb 15.5 (14.0-18.0) g/dl Hct 44.3 (42.0-52.0) % MCV 88.8 (80.0-100.0) fL MCH 31.1 (25.0-34.0) pg MCHC 35.0 (32.0-36.0) g/dL RDW Std Deviation 39.3 (36.4-46.3) fL RDW Coeff of Melina 12.1 (11.5-14.5) % Plt Count 264 (130-400) K/uL MPV 9.6 (9.4-12.4) fL Immature Gran % (Auto) 0.5 % Neut % (Auto) 81.4 % Lymph % (Auto) 12.8 % [place] % (Auto) 4.5 % Eos % (Auto) 0.4 % Baso % (Auto) 0.4 % Neut # (Auto) 9.12 H (1.40-6.50) K/uL Lymph # (Auto) 1.43 (1.20-3.40) K/uL [place] # (Auto) 0.50 (0.11-0.59) K/uL Eos # (Auto) 0.04 (0.00-0.50) K/uL Baso # (Auto) 0.04 (0.00-0.20) K/uL Immature Gran # (Auto) 0.06 (0.01-0.20) K/uL PT 11.6 (9.0-12.0) Seconds INR 1.1 (0.9-1.1) APTT 22 (21-31) Seconds PTT Ratio 0.8 Sodium 139 (136-145) mmol/L Potassium 3.8 (3.5-5.1) mmol/L Chloride 104 (98-107) mmol/L Carbon Dioxide 28 (21-32) mmol/L Anion Gap 7 (3-11) BUN 9 (6-23) mg/dl Creatinine 0.81 (0.6-1.4) mg/dl Est Cr Clr Drug Dosing Not Reportable eGFR 113.60 BUN/Creatinine Ratio 11.1 (10-20) Glucose 93 (70-99(Fasting)) mg/dl Calcium 8.5 L (8.6-10.3) mg/dl Total Bilirubin 0.4 (0.2-1.0) mg/dl AST 30 (13-39) U/L ALT 53 H (7-52) U/L Alkaline Phosphatase 52 (34-104) U/L Total Protein 7.0 (6.0-8.3) gm/dl Albumin 4.6 (3.4-5.0) gm/dl Globulin 2.4 L (2.5-4.0) gm/dl Albumin/Globulin Ratio 1.9 (0.9-2) Administered Medications Discontinued Medications Hydromorphone HCl (Hydromorphone Inj 1 Mg/Ml Syringe) 1 mg IV NOW STA Stop: 10/08/24 17:36 Last Admin: 10/08/24 17:40 Dose: 1 mg Documented By: YAZAN Acetaminophen (Ofirmev) 1,000 mg in 100 mls @ 400 mls/hr IV NOW STA Stop: 10/08/24 18:13 Last Infusion: 10/08/24 18:25 Dose: Infused Documented By: Admin: 10/08/24 18:07 Dose: 400 mls/hr Documented By: [facility] Imaging Data Radiologist's Impression: Ankle X-Ray 10/08/24 17:35 INDICATION: Pain and injury. TECHNIQUE: 2 views of the left ankle. 4 views of the left tibia/fibula. COMPARISON: No relevant priors. FINDINGS/IMPRESSION: Comminuted, mildly displaced fractures of the distal fibula and tibial shafts. Remaining osseous structures intact. No dislocation. Soft tissue swelling. Electronically signed by Ke Luque 10-08-2024 6:21 PM Tibia/Fibula X-Ray 10/08/24 17:35 INDICATION: Pain and injury. TECHNIQUE: 2 views of the left ankle. 4 views of the left tibia/fibula. COMPARISON: No relevant priors. FINDINGS/IMPRESSION: Comminuted, mildly displaced fractures of the distal fibula and tibial shafts. Remaining osseous structures intact. No dislocation. Soft tissue swelling. Electronically signed by Ke Luque 10-08-2024 6:21 PM Chest X-Ray 10/08/24 17:36 INDICATION: Chest pain and injury. TECHNIQUE: Frontal radiograph of the chest. COMPARISON: None. FINDINGS: The cardiomediastinal silhouette and pulmonary vasculature appear within normal limits. No infiltrate, pleural effusion or pneumothorax. No acute osseous abnormality evident. IMPRESSION: No acute cardiopulmonary process. Electronically signed by Ke Luque 10-08-2024 6:21 PM Discharge Plan Visit Data Chief Complaint: Leg Injury/Pain ED Provider: Jojo Johnson Discharge Problem: Fall from standing, Comminuted fracture of shaft of fibula, Comminuted fracture of shaft of tibia Forms Stand Alone Forms: [facility] Prescriptions Prescriptions: No Action No Known Home Medications Referrals Referrals: Tremaine Daniels MD [Primary Care Provider] -
[2024-10-08] MEDS: ACETAMINOPHEN 1,000 MG/100 ML VIAL IV STA (18:07)
--- NOTE | 2024-10-08 18:22 | XRay Report ---
INDICATION: Chest pain and injury. TECHNIQUE: Frontal radiograph of the chest. COMPARISON: None. FINDINGS: The cardiomediastinal silhouette and pulmonary vasculature appear within normal limits. No infiltrate, pleural effusion or pneumothorax. No acute osseous abnormality evident. IMPRESSION: No acute cardiopulmonary process. Electronically signed by Ke Luque 10-08-2024 6:21 PM
--- NOTE | 2024-10-08 18:23 | XRay Report ---
INDICATION: Pain and injury. TECHNIQUE: 2 views of the left ankle. 4 views of the left tibia/fibula. COMPARISON: No relevant priors. FINDINGS/IMPRESSION: Comminuted, mildly displaced fractures of the distal fibula and tibial shafts. Remaining osseous structures intact. No dislocation. Soft tissue swelling. Electronically signed by Ke Luque 10-08-2024 6:21 PM
[2024-10-08 18:28] LABS: Basophils # (auto) 0.04 K/uL (0.00-0.20); Basophils % (auto) 0.4 %; Eosinophils # (auto) 0.04 K/uL (0.00-0.50); Eosinophils % (auto) 0.4 %; Hematocrit (blood only) 44.3 % (42.0-52.0); Hemoglobin 15.5 g/dl (14.0-18.0); Immature Granulocytes # (auto) 0.06 K/uL (0.01-0.20); Immature Granulocytes % (auto) 0.5 %; Lymphocytes # (auto) 1.43 K/uL (1.20-3.40); Lymphocytes % (auto) 12.8 %; Mean Corpuscular Hemoglobin 31.1 pg (25.0-34.0); Mean Corpuscular Volume 88.8 fL (80.0-100.0); Mean Platelet Volume 9.6 fL (9.4-12.4); Monocytes % (auto) 4.5 %; Neutrophils # (auto) 9.12 K/uL (1.40-6.50); Neutrophils % (auto) 81.4 %; Platelet Count 264 K/uL (130-400); RDW Coefficient of Variation 12.1 % (11.5-14.5); RDW Standard Deviation 39.3 fL (36.4-46.3); Red Blood Count 4.99 M/uL (4.70-6.10); White Blood Count 11.19 K/ul (4.8-10.8)
[2024-10-08 18:38] LABS: Alanine Aminotransferase 53 U/L (7-52); Albumin Globulin Ratio 1.9 (0.9-2); Albumin Level 4.6 gm/dl (3.4-5.0); Alkaline Phosphatase 52 U/L (34-104); Anion Gap 7 (3-11); Aspartate Aminotransferase 30 U/L (13-39); BUN Creatinine Ratio 11.1 (10-20); Bilirubin,Total 0.4 mg/dl (0.2-1.0); Blood Urea Nitrogen 9 mg/dl (6-23); Calcium 8.5 mg/dl (8.6-10.3); Carbon Dioxide 28 mmol/L (21-32); Chloride 104 mmol/L (98-107); Globulin 2.4 gm/dl (2.5-4.0); Glucose 93 mg/dl (70-99(Fasting)); Potassium 3.8 mmol/L (3.5-5.1); Sodium 139 mmol/L (136-145)
[2024-10-08 18:54] LABS: INR 1.1 (0.9-1.1); Partial Thromboplastin Ratio 0.8; Partial Thromboplastin Time 22 Seconds (21-31); Prothrombin Time 11.6 Seconds (9.0-12.0)
[2024-10-08] MEDS: KETAMINE HCL IV ONE (19:27)
[2024-10-08] MEDS: SODIUM CHLORIDE 0.9% IV ONE (19:27)
[2024-10-08] MEDS ORDERED: ACETAMINOPHEN 325 MG TAB PO PRN (19:47)
--- NOTE | 2024-10-08 20:27 | History & Physical Report ---
Date of Service October 08, 2024 Assessment & Plan (1) Tibia/fibula fracture: Plan: Traumatic left tib-fib fracture At risk alcohol intake Ongoing vape use Admit to medical telemetry given propensity for alcohol withdrawal YAZAN S at risk protocol, DT precautions Orthopedics consult Re: Traumatic left tib-fib fracture (ED provider already in touch with Dr. Monson. Surgery recommended in AM.) N.p.o. after midnight in anticipation of procedure. DVT prophylaxis. SCDs re: contemplated procedure Full code Patient requesting updates providers. Ms. [place], contact #[phone]. Text document was generated using [employer] voice recognition software. It may contain grammatical or spelling errors. Kindly contact undersigned for clarification of any documentation item in question. History of Present Illness Chief Complaint: Fall, left leg pain Primary Care Provider: Tremaine Daniels MD History obtained from patient, family, and records. Medical history significant for mood disorder, urolithiasis, chronic left rotator cuff syndrome, daily alcohol intake, ongoing vape use Patient slipped on some ice as he was to go back inside his house patient lost balance and landed on his left leg. Patient heard something crack. Achy left lower leg pain. No head trauma/LOC, no chest pain, no SOB. EMS summoned to patient's home. 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 Home Medications Medication Instructions Recorded Confirmed Type No Known Home Medications 10/08/24 10/08/24 History Past Med/Surg History Problem List (Updated 10/09/24 @ 00:47 by Ron Martínez MD) Tibia/fibula fracture Comminuted fracture of shaft of tibia (Acute) Comminuted fracture of shaft of fibula (Acute) Fall from standing (Acute) Work related injury (Acute) Social History Smoking Status: Current every day smoker Tobacco Type: E-cigarettes / Vaping Second Hand Exposure: Yes; Hx Alcohol Use: Yes Alcohol type: beer Hx Substance Use: No Preferred Language: Kazakh Communication Ability: Effective Butt Presser Required: No Beliefs That Will Affect Care: None Current Living Situation: Spouse and Family Current Living Situation Comment: lives with and 3 kids Other Information That Helps Us Care for You: No Feels Safe at Home: Yes Safety Concerns: Feels Safe At This Time Review of Systems Review of Systems: As per HPI, all other systems reviewed and negative Physical Exam Physical Exam: GENERAL: Comfortable, slightly anxious, pleasant, no respiratory distress SKIN: Normal color, warm HEENT: [place] palpebral conjunctivae, no ptosis, moist buccal mucosa NECK : Supple, no tenderness CHEST : CTA, no tenderness HEART : RRR, no obvious murmurs ABDOMEN: Some distention, nontender EXTREMITIES : LLE splint, no other conspicuous deformities noted NEUROLOGIC : Coherent, no facial asymmetry, no other gross focality Results & Data Results & Data Vital Signs (Past 12 Hours) Vital Signs Temp Pulse Resp BP Pulse Ox O2 Del Method 10/08/24 18:03 95 H 17 97 Room Air 10/08/24 17:38 92 H 10/08/24 17:20 Room Air 10/08/24 17:20 36.9 C 86 20 141/107 H 96 Room Air Laboratory Results Laboratory Results WBC 11.19 K/ul (4.8-10.8) H 10/08/24 17:58 RBC 4.99 M/uL (4.70-6.10) 10/08/24 17:58 Hgb 15.5 g/dl (14.0-18.0) 10/08/24 17:58 Hct 44.3 % (42.0-52.0) 10/08/24 17:58 MCV 88.8 fL (80.0-100.0) 10/08/24 17:58 MCH 31.1 pg (25.0-34.0) 10/08/24 17:58 MCHC 35.0 g/dL (32.0-36.0) 10/08/24 17:58 RDW Std Deviation 39.3 fL (36.4-46.3) 10/08/24 17:58 RDW Coeff of Melina 12.1 % (11.5-14.5) 10/08/24 17:58 Plt Count 264 K/uL (130-400) 10/08/24 17:58 MPV 9.6 fL (9.4-12.4) 10/08/24 17:58 Immature Gran % (Auto) 0.5 % 10/08/24 17:58 Neut % (Auto) 81.4 % 10/08/24 17:58 Lymph % (Auto) 12.8 % 10/08/24 17:58 [place] % (Auto) 4.5 % 10/08/24 17:58 Eos % (Auto) 0.4 % 10/08/24 17:58 Baso % (Auto) 0.4 % 10/08/24 17:58 Neut # (Auto) 9.12 K/uL (1.40-6.50) H 10/08/24 17:58 Lymph # (Auto) 1.43 K/uL (1.20-3.40) 10/08/24 17:58 [place] # (Auto) 0.50 K/uL (0.11-0.59) 10/08/24 17:58 Eos # (Auto) 0.04 K/uL (0.00-0.50) 10/08/24 17:58 Baso # (Auto) 0.04 K/uL (0.00-0.20) 10/08/24 17:58 Immature Gran # (Auto) 0.06 K/uL (0.01-0.20) 10/08/24 17:58 PT 11.6 Seconds (9.0-12.0) 10/08/24 17:58 INR 1.1 (0.9-1.1) 10/08/24 17:58 APTT 22 Seconds (21-31) 10/08/24 17:58 PTT Ratio 0.8 10/08/24 17:58 Sodium 139 mmol/L (136-145) 10/08/24 17:58 Potassium 3.8 mmol/L (3.5-5.1) 10/08/24 17:58 Chloride 104 mmol/L (98-107) 10/08/24 17:58 Carbon Dioxide 28 mmol/L (21-32) 10/08/24 17:58 Anion Gap 7 (3-11) 10/08/24 17:58 BUN 9 mg/dl (6-23) 10/08/24 17:58 Creatinine 0.81 mg/dl (0.6-1.4) 10/08/24 17:58 Est Cr Clr Drug Dosing Not Reportable 10/08/24 17:58 eGFR 113.60 10/08/24 17:58 BUN/Creatinine Ratio 11.1 (10-20) 10/08/24 17:58 Glucose 93 mg/dl (70-99(Fasting)) 10/08/24 17:58 Calcium 8.5 mg/dl (8.6-10.3) L 10/08/24 17:58 Total Bilirubin 0.4 mg/dl (0.2-1.0) 10/08/24 17:58 AST 30 U/L (13-39) 10/08/24 17:58 ALT 53 U/L (7-52) H 10/08/24 17:58 Alkaline Phosphatase 52 U/L (34-104) 10/08/24 17:58 Total Protein 7.0 gm/dl (6.0-8.3) 10/08/24 17:58 Albumin 4.6 gm/dl (3.4-5.0) 10/08/24 17:58 Globulin 2.4 gm/dl (2.5-4.0) L 10/08/24 17:58 Albumin/Globulin Ratio 1.9 (0.9-2) 10/08/24 17:58 Impressions Ankle X-Ray 10/08/24 17:35 INDICATION: Pain and injury. TECHNIQUE: 2 views of the left ankle. 4 views of the left tibia/fibula. COMPARISON: No relevant priors. FINDINGS/IMPRESSION: Comminuted, mildly displaced fractures of the distal fibula and tibial shafts. Remaining osseous structures intact. No dislocation. Soft tissue swelling. Electronically signed by Ke Luque 10-08-2024 6:21 PM Tibia/Fibula X-Ray 10/08/24 17:35 INDICATION: Pain and injury. TECHNIQUE: 2 views of the left ankle. 4 views of the left tibia/fibula. COMPARISON: No relevant priors. FINDINGS/IMPRESSION: Comminuted, mildly displaced fractures of the distal fibula and tibial shafts. Remaining osseous structures intact. No dislocation. Soft tissue swelling. Electronically signed by Ke Luque 10-08-2024 6:21 PM Chest X-Ray 10/08/24 17:36 INDICATION: Chest pain and injury. TECHNIQUE: Frontal radiograph of the chest. COMPARISON: None. FINDINGS: The cardiomediastinal silhouette and pulmonary vasculature appear within normal limits. No infiltrate, pleural effusion or pneumothorax. No acute osseous abnormality evident. IMPRESSION: No acute cardiopulmonary process. Electronically signed by Ke Luque 10-08-2024 6:21 PM Diagnostic Findings EKG as per my interpretation :Rate 100, NSR, normal axis, 1 AVB, no ischemia
[2024-10-08] MEDS ORDERED: PROMETHAZINE 6.25 MG/50.25 ML BAG IV PRN (20:30)
[2024-10-08] MEDS ORDERED: ACETAMINOPHEN 500 MG TAB PO PRN (20:30)
[2024-10-08] MEDS ORDERED: LORazepam 0.5 MG TAB PO PRN (20:30)
[2024-10-08] MEDS ORDERED: LORazepam 2 MG/1 ML VIAL IV PRN (20:30)
[2024-10-08] MEDS: THIAMINE HCL 100 MG in SYRINGE 9 ML IV STA (21:00)
[2024-10-08] MEDS: oxyCODONE HCL IR 5 MG TAB (IMMEDIATE RELEASE) PO PRN (22:28)
[2024-10-09] MEDS: SODIUM CHLORIDE 0.9% 1,000 ML IV ONE (00:18)
[2024-10-09] MEDS: MoRPHine SULFATE 4 MG/ML 1 ML CARP\\VIAL IV PRN (00:22)
[2024-10-09] MEDS: ACETAMINOPHEN 325 MG TAB PO PRN (01:49)
[2024-10-09 07:10] LABS: Basophils # (auto) 0.03 K/uL (0.00-0.20); Basophils % (auto) 0.4 %; Eosinophils # (auto) 0.03 K/uL (0.00-0.50); Eosinophils % (auto) 0.4 %; Hematocrit (blood only) 41.1 % (42.0-52.0); Hemoglobin 14.7 g/dl (14.0-18.0); Immature Granulocytes # (auto) 0.02 K/uL (0.01-0.20); Immature Granulocytes % (auto) 0.2 %; Lymphocytes # (auto) 1.76 K/uL (1.20-3.40); Mean Corpuscular Hemoglobin 31.8 pg (25.0-34.0); Mean Corpuscular Hgb Conc 35.8 g/dL (32.0-36.0); Monocytes # (auto) 0.88 K/uL (0.11-0.59); Monocytes % (auto) 10.5 %; Neutrophils # (auto) 5.67 K/uL (1.40-6.50); Neutrophils % (auto) 67.5 %; Platelet Count 243 K/uL (130-400); RDW Standard Deviation 38.7 fL (36.4-46.3); Red Blood Count 4.62 M/uL (4.70-6.10); White Blood Count 8.39 K/ul (4.8-10.8)
[2024-10-09] MEDS ORDERED: fentaNYL citrate PF 100 MCG/2 ML VIAL ONE (07:18)
[2024-10-09] MEDS ORDERED: PROPOFOL IV EMULSION 10 MG/ML 100 ML VIAL IV ONE (07:18)
[2024-10-09] MEDS ORDERED: MIDAZOLAM HCL 1 MG/ML 2ML VIAL ONE ×2 (07:18→07:19)
[2024-10-09] MEDS ORDERED: KETAMINE HCL 10MG/ML SYR ONE (07:22)
--- NOTE | 2024-10-09 07:25 | Orthopedic Consultation ---
Date of Consultation October 09, 2024 Assessment & Plan (1) Comminuted fracture of shaft of tibia: (2) Tibia/fibula fracture: discussed the diagnosis with the patient. Surgery is indicated to reduce and stabilize his fracture. Recommend intramedullary nail fixation of his tibia. I told him we may need to fix his fibula as well but we will have to make this decision intraoperatively. We talked about the risks and benefits of surgery, recovery time after surgery as well as restrictions. After reviewing all of his options he elected to proceed with surgery. All questions were answered. Informed consent was signed. Surgical site was marked. Proceed to the operating room this morning. Will readmit for 24 hours of monitoring after surgery. If this goes well, he should be okay to discharge home tomorrow. (3) Comminuted fracture of shaft of fibula: History of Present Illness Attending Physician: Arcadio Delaney MD History of Present Illness Patient is a 43-year-old male with left leg pain. Patient reports that he was getting something out of the bed of his truck when he turned to go back inside his house and he slipped on a bit of ice, losing his balance and states that he planted his left leg on the ground and seemed to twist his body and fall, landing on his buttock and low back. He denies striking his head or loss of consciousness. He is not on any medications, including any anticoagulants. He reports immediate pain and deformity to the left lower leg. He was brought to the emergency room yesterday evening where x-rays were obtained showing a distal tib-fib fracture with comminution. Orthopedics was consulted. He was admitted to the hospitalist service overnight. He has been n.p.o. since midnight tonight. Patient was seen and examined this morning. He reports the splint is fitting him well. He reports a little bit of tingling in his toes but he says he is able to move them. No prior history of injury to his left leg. 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 He does vape and drink. Allergies Allergy/AdvReac Type Severity Reaction Status Date / Time bee venom protein (honey bee) Allergy Intermediate "EXTREME" Verified 10/08/24 19:08 SWELLING AT SITE OF STING. Home Medications Medication Instructions Recorded Confirmed Type No Known Home Medications 01/25/25 01/25/25 History Patient History Social History Smoking Status: Current every day smoker Tobacco Type: E-cigarettes / Vaping Second Hand Exposure: Yes; Hx Alcohol Use: Yes Alcohol type: beer Hx Substance Use: No Preferred Language: Mohawk Communication Ability: Effective Engineering Inspection Assistant Required: No Beliefs That Will Affect Care: None Current Living Situation: Spouse and Family Current Living Situation Comment: lives with and 3 kids Other Information That Helps Us Care for You: No Feels Safe at Home: Yes Safety Concerns: Feels Safe At This Time Physical Exam Physical Exam: resting comfortably in bed in no acute distress. Left leg is elevated on pillows. His splint is in place. Exposed toes are warm and well-perfused. Reports sensation intact to moving light touch over the toes and in the first webspace. He is able to wiggle his toes. The exposed knee has no skin lesions and there is no knee effusion. Results & Data Vital Signs (Past 12 Hours) Vital Signs Temp Pulse Pulse Resp BP BP Pulse Ox 10/09/24 03:52 36.8 C 81 20 132/89 96 10/08/24 22:32 83 10/08/24 22:07 37.4 C 97 H 16 129/84 97 10/08/24 21:30 88 19 123/85 98 10/08/24 21:00 100 H 20 122/90 96 10/08/24 20:51 102 H 16 115/88 95 O2 Del Method 10/09/24 03:52 Room Air 10/08/24 22:32 10/08/24 22:07 Room Air 10/08/24 21:30 10/08/24 21:00 10/08/24 20:51 Diagnostic Findings X-rays done today were independently interpreted by me including tib-fib and ankle films. He has a comminuted distal tibia fracture and comminuted distal fibula fracture. Syndesmosis appears intact. No abnormalities in the knee or proximal tibia
--- NOTE | 2024-10-09 07:26 | Anesthesiology Consultation ---
Date of Service October 09, 2024 Assessment & Plan Chart Review Chart Review: Acceptable Risk for Surgery and Patient NOT seen in Pre Admission Testing Consults Requested none ASA ASA2 Proposed Anesthesia Anesthesia Type: General Risk / Benefits Reviewed With: PT / POA / Parent / Guardian, Accepts Plan and Informed Consent Obtained History Surgery Operation Date: 10/09/24 07:30 Proposed Procedures p Intramedullary Nail Tibia(Left) - Jeremy Ventura MD Height/Weight Height: 5 ft 9 in Weight: 84.822 kg Allergies Allergy/AdvReac Type Severity Reaction Status Date / Time bee venom protein (honey bee) Allergy Intermediate "EXTREME" Verified 10/08/24 19:08 SWELLING AT SITE OF STING. Medications Home Medications Medication Instructions Recorded Confirmed Last Taken No Known Home Medications 10/08/24 10/08/24 Unknown Active Medications Generic Name Dose Route Start Last Admin Trade Name Freq PRN Reason Stop Dose Admin Acetaminophen 650 mg 10/08/24 20:32 10/09/24 01:49 Acetaminophen 325 Mg Tab PO 11/07/24 20:31 650 mg QID PRN Administration pain/fever Sodium Chloride 1,000 mls @ 75 mls/hr 10/09/24 00:00 10/09/24 07:04 Nss IV 10/09/24 13:19 0 mls/hr .[id number] ONE Infusion Morphine Sulfate 4 mg 10/08/24 20:30 10/09/24 00:22 Morphine Sulfate 4 Mg/Ml 1 Ml Carp\\Vial IV 10/22/24 20:29 4 mg Q4H PRN Administration Pain Oxycodone HCl 5 - 10 mg 10/08/24 19:47 10/09/24 05:29 Oxycodone Hcl Ir 5 Mg Tab (Immediate Release) PO 10/22/24 19:46 10 mg QID PRN Administration Pain NPO Date Last Intake of Fluids: 10/09/24 Time Last Intake of Fluids: 05:00 Date Last Intake of Solids: 10/08/24 Time Last Intake of Solids: 21:00 Exercise / Class Metabolic Activity 1 > 8 Run/Swim/Ski/Tennis Past Anesthesia History No Hx of Anesthesia Complications and No Family Hx of Anesthesia Complications History of PONV No Hx of PONV and No Hx of Motion Sickness Social History Smoking Status: Current every day smoker Hx Alcohol Use: Yes Alcohol type: beer alcohol intake frequency: 3 or more drinks per day Alcohol Intake Frequency Comment: states he drinks 6-8 beers daily Hx Substance Use: No substance use type: does not use Review of Systems ROS Unobtainable: All systems reviewed & are unremarkable except as noted in HPI & below Physical Exam Vital Signs Last Vital Signs Temp 36.8 C 10/09/24 03:52 Pulse 92 H 10/09/24 07:21 Resp 20 10/09/24 03:52 BP 132/89 10/09/24 03:52 Pulse Ox 96 10/09/24 03:52 O2 Del Method Room Air 10/09/24 03:52 ENMT Mouth: no TMJ abnormality Thyromental Distance: > or= 3.5 Finger Breadths Mallampati Class: II Neck normal visual inspection and trachea midline; neck extension not limited Respiratory normal respiratory effort Auscultation: lungs clear to auscultation bilaterally Cardiovascular Rate/Rhythm: regular rate and regular rhythm Heart Sounds: no murmur Musculoskeletal Spine: normal cervical ROM Extremities: full ROM of extremities Neurologic moves all extremities Psychiatric Orientation: alert and oriented x 3 Testing Laboratory Results 10/09/24 06:23 PT 11.6 Seconds (9.0-12.0) 10/08/24 17:58 INR 1.1 (0.9-1.1) 10/08/24 17:58 APTT 22 Seconds (21-31) 10/08/24 17:58 Blood Type A Positive 10/08/24 20:53 Antibody Screen NEGATIVE 10/08/24 20:53
[2024-10-09] MEDS ORDERED: HYDROmorphone INJ 1 MG/ML SYRINGE IV PRN (07:27)
[2024-10-09] MEDS ORDERED: ATROPINE SULFATE 0.1 MG/ML 10ML SYR IV PRN (07:27)
[2024-10-09] MEDS ORDERED: HYDROmorphone INJ 2 MG/ML SYR/VIAL IV PRN (07:27)
[2024-10-09] MEDS ORDERED: ONDANSETRON INJ 2 MG/ML 2 ML VIAL IV PRN (07:27)
[2024-10-09] MEDS ORDERED: ePHEDrine sulfate 50 MG/ML AMP IV PRN (07:27)
[2024-10-09] MEDS ORDERED: PROPOFOL IV EMULSION 10 MG/ML 20 ML VIAL IV ONE (07:29)
[2024-10-09] MEDS ORDERED: ONDANSETRON INJ 2 MG/ML 2 ML VIAL ONE (07:29)
[2024-10-09] MEDS ORDERED: ROCURONIUM BROMIDE 10 MG/ML 5 ML VIAL IV ONE ×2 (07:29→08:26)
[2024-10-09] MEDS ORDERED: DEXAMETHASONE SOD INJ 4 MG/ML VIAL ONE (07:29)
[2024-10-09] MEDS ORDERED: SUGAMMADEX SODIUM 200 MG/2 ML VIAL IV ONE (07:30)
[2024-10-09] MEDS ORDERED: HYDROmorphone INJ 1 MG/ML SYRINGE ONE ×2 (07:30→07:54)
[2024-10-09 07:36] LABS: Albumin Globulin Ratio 1.8 (0.9-2); Albumin Level 4.3 gm/dl (3.4-5.0); BUN Creatinine Ratio 11.1 (10-20); Bilirubin,Total 0.9 mg/dl (0.2-1.0); Calcium 8.9 mg/dl (8.6-10.3); Globulin 2.4 gm/dl (2.5-4.0); Total Protein 6.7 gm/dl (6.0-8.3)
[2024-10-09] MEDS ORDERED: ceFAZolin 330 MG/ML 1 GM VIAL ONE (07:54)
[2024-10-09] MEDS ORDERED: GLYCOPYRROLATE 0.2 MG/ML VIAL ONE (07:54)
[2024-10-09] MEDS: ceFAZolin 2000MG 2,000 MG/15 ML SYR IV ONE (07:58)
[2024-10-09] MEDS: TRANEXAMIC ACID / 0.7% NACL 1000MG/100ML BAG IV ONE (08:11)
[2024-10-09] MEDS ORDERED: HYDROmorphone INJ 2 MG/ML SYR/VIAL ONE (10:04)
[2024-10-09] MEDS: BUPIVACAINE/EPINEPHRINE 0.5% MPF 1:200,000 30 ML VIAL ONE (10:45)
[2024-10-09] MEDS ORDERED: MAGNESIUM HYDROXIDE SUSP 30 ML UDC PO PRN (11:24)
[2024-10-09] MEDS ORDERED: diphenhydrAMINE 50 MG/ML VIAL IV PRN (11:24)
[2024-10-09] MEDS ORDERED: HYDROmorphone INJ 0.5 MG/0.5 ML SYR IV PRN (11:24)
[2024-10-09] MEDS ORDERED: TAMSULOSIN HCL 0.4 MG CAP PO PRN (11:24)
[2024-10-09] MEDS ORDERED: NALOXONE HCL 0.4 MG/1 ML VIAL/CARP IV PRN (11:24)
[2024-10-09] MEDS ORDERED: METOCLOPRAMIDE HCL INJ 5 MG/ML 2 ML VIAL IV PRN (11:24)
[2024-10-09] MEDS ORDERED: ALUMINUM/MAGNESIUM SUSP 30 ML UDC PO PRN (11:24)
[2024-10-09] MEDS ORDERED: oxyCODONE HCL IR 5 MG TAB (IMMEDIATE RELEASE) PO PRN (11:24)
[2024-10-09] MEDS ORDERED: bisacodyL 10 MG SUPP PR PRN (11:24)
--- NOTE | 2024-10-09 11:24 | Operative Report ---
Post Operative Report Pre & Post Diagnosis Operation Date: 10/09/24 07:30 Pre-Op Diagnosis: Comminuted fracture of shaft of tibia, Tibia/fibula fracture Post-Op Diagnosis: Comminuted fracture of shaft of tibia, Tibia/fibula fracture I identified the patient and participated in the time-out.: Yes Procedure Operation Date: 10/09/24 07:30 Actual Procedures p Open Reduction Internal Fixation of left distal comminuted fibula fracture, Intramedullary Colin Left distal Comminuted Tibia Fracture(Left) - Jeremy Ventura MD Surgeon Jeremy Ventura MD Collar Stitcher Everton Pastrana PA-C Estimated Blood Loss 50 Findings Consistent with Post-Op Diagnosis Specimens none Description of Procedure I was present during the entire case assisting with positioning, prepping, draping, wound retraction, hardware placement, wound closure, dressing and splint application. No fellow present. Please see Dr. Ventura procedure note for specifics of the case. I attest to the content of the Intraoperative Record and any orders documented therein. Any exceptions are noted below.
[2024-10-09] MEDS: fentaNYL citrate PF 100 MCG/2 ML VIAL IV PRN (11:28)
--- NOTE | 2024-10-09 11:41 | Fluoroscopy Report ---
FL tibia/fibula LT 2V CLINICAL HISTORY: LT TIB FIB IM NAIL COMPARISON STUDY: None FLUOROSCOPY TIME: 295 seconds FLUOROSCOPY IMAGES: 8 EXPOSURE DOSE: 14 mGy FINDINGS: Fluoroscopy was provided for internal fixation of the ankle. IMPRESSION: Intraoperative fluoroscopy. ACT 112: Negative or not required by law. Electronically signed by: Keven Groves M.D. 10/09/2024 11:40 AM
--- NOTE | 2024-10-09 11:50 | Operative Report ---
Post Operative Report Pre & Post Diagnosis Operation Date: 10/09/24 07:30 Preoperative diagnosis: Comminuted left distal fibula fracture and comminuted left distal tibia fracture. Postop diagnosis: Comminuted left distal fibula fracture and comminuted left distal tibia fracture. I identified the patient and participated in the time-out.: Yes Procedure Operation Date: 10/09/24 07:30 1. Open reduction internal fixation comminuted left distal fibula fracture 2. Intramedullary janeth left distal tibia fracture Surgeon Jeremy Ventura MD Floor Installation Mechanic Everton Pastrana PA-C Estimated Blood Loss 50 Findings Consistent with Post-Op Diagnosis Specimens none Anesthesia Type General Complications none Disposition Disposition: Recovery Room Indications 43-year-old male, twisted his ankle at home yesterday sustaining comminuted fractures of the left distal fibula and left distal tibia. He was brought to the emergency room where x-rays showed the above diagnoses. He was splinted and admitted to the hospitalist service with his leg elevated. I saw him this morning and explained the diagnosis and treatment options. He was a candidate for surgery to reduce and stabilize his leg to allow him to regain the ability to walk. After reviewing the risks and benefits of surgery, alternatives, and expected outcomes he elected to proceed. All questions were answered. Informed consent was signed. Description of Procedure Patient was identified in the preoperative holding area where his surgical site was marked. He was brought back to the operating room where general anesthesia was administered on the hospital bed. He was then carefully moved onto the fracture table. All bony prominences were padded. Blankets were placed underneath the left chest, abdomen and pelvis in order to internally rotate the leg to expose the fibula. 1 g of IV tranexamic acid was administered as well as IV antibiotics. He was prepped and draped in the usual sterile fashion. Prior to incision a multidisciplinary timeout was called. All in the room were in agreement. I began by exsanguinating the limb with an Esmarch bandage. Tourniquet was inflated to 250 mmHg. A 10 cm long incision was made centered over the fibula fracture. I dissected down through subcutaneous tissues. The superficial peroneal nerve was identified in the anterior tissues. This was slightly dissected out and then retracted anteriorly and protected throughout the case. Fibula fracture was then exposed subperiosteally. It was comminuted with 2 small pieces in addition to the 2 main proximal and distal fragments. One of the comminuted pieces distally was larger than the more proximal 1. I was able to get an anatomic reduction on this and put a clamp across it. I then placed a front to back lag screw with a 2.7 mm cortical screw. This held the reduction nicely. However while further manipulating the fracture this piece broke into another smaller piece. I was then able to bring the fibula out to length using a lion-jaw clamps and hold this with a 10 hole one third tubular plate on the lateral aspect of the fibula. Fluoroscopy was brought in to confirm that we had him out to length. I then placed two 3.5 mm cortical screws in the proximal fracture fragment and 3 in the distal fragment. The distal screws were unicortical so as to not violate the syndesmosis and the ankle joint. I then placed a third screw proximally giving us a nice bridge plate construct. The wound was then irrigated out. Tourniquet was let down. Meticulous hemostasis was ensured. Wound was then closed using 2-0 Vicryl sutures in interrupted buried fashion. Skin was closed with reji. We then turned our attention towards the tibia fracture. With the patient in the supine position and semiextended approach I made a 5 cm long incision along the medial aspect of the patella. I dissected down to subcutaneous tissues onto the fascia. Arthrotomy was made starting at the distal aspect of the patella and extending to the proximal aspect of the patella slightly up into the quadriceps tendon for about 1 cm. Great care was taken to not violate the articular cartilage. Patella was then subluxated laterally. Knee was flexed about 20 degrees. The Synthes guide was then placed through the knee and the appropriate starting position was identified on AP and lateral fluoroscopic views. The guidewire was then drilled down into the proximal tibia. 12 mm opening reamer was inserted. A ball-tipped guidewire was then bent and then placed down into the knee. Guidewire was advanced down to just above the fracture. Next, I worked to reduce the tibia fracture. Despite fixing the fibula it still wanted to dip slightly into valgus and procurvatum. 2 small stab incisions were made along the tibia to try to place a clamp to hold it. Due to the comminuted nature of the fracture I was not able to get a good clamp across the fracture. Therefore I put on x-ray gloves and manually held the fracture in a reduced position while the ball-tipped guidewire was advanced across the fracture down to the center center position of the ankle. Once this was complete I then sequentially reamed up through the guide taking great care to not start the reamer until the reamer was inside the bone so as to protect the knee. We started with an 8.5 mg meter reamer and reamed up by 1 up to 11.5. I then reamed with a 12 mm reamer to the level of the fracture. We had good chatter with this. I elected to use an 11 mm nail. I then removed the metal guide sleeve from the plastic protector in the knee and reamed the intramedullary canal with the 12.5 reamer past the isthmus to the level of fracture. Next, the nail was slid down over the guidewire and tamped all the way down to the ankle while holding the fracture anatomically reduced. I was very happy with the position of the nail. I then placed 2 medial to lateral cross locking screws using perfect circles technique. I then placed a third screw from anterior to posterior using perfect circles technique and taking great care to protect the soft tissues while drilling and placing the screw. Excellent fixation was obtained. I then slightly back slap the fracture in order to correct any gapping. A single medial to lateral cross locking screw was then placed through the static hole in the proximal aspect of the nail. A 5 mm end cap was then placed. Final fluoroscopic images were obtained. Wounds were irrigated with copious amounts normal saline. The arthrotomy in the knee was closed with 0 Vicryl suture. Deep dermis at the knee was closed with 2-0 Vicryl. Reji were used for the skin. Xeroform, 4 x 4, and cast padding were placed. A posterior plaster slab splint was placed in the lower leg leaving the knee allowed to have full range of motion. Once the plaster was dry the patient was then awoke from anesthesia and transferred to the cover room in stable condition. Postoperative course: Patient will be readmitted to the internal medicine service from the recovery room. He will be on aspirin 81 mg twice a day for DVT prophylaxis for 30 days. Nonweightbearing for the next 2 weeks. At his 2-week follow-up visit his splint can be removed as well as his reji. He can then begin touchdown weightbearing on crutches. Does not need a walking boot or any external splint at that time. Goal will be for him to have full knee range of motion by 2 to 4 weeks after surgery. X-rays to be obtained at his 2-week follow-up visit and at 6 weeks in follow-up. I attest to the content of the Intraoperative Record and any orders documented therein. Any exceptions are noted below.
[2024-10-09] MEDS: LABETALOL HCL IV 5 MG/ML 20ML IV STA (12:00)
--- NOTE | 2024-10-09 12:12 | Anesthesiology Progress Note ---
Date of Service October 09, 2024 Anesthesia Post Procedure Vital Signs Vital Signs: Temp Pulse Pulse Pulse Resp BP BP 10/09/24 11:50 36.7 C 85 15 162/110 H 10/09/24 11:40 84 10 L 152/115 H 10/09/24 11:30 82 18 128/110 H 10/09/24 11:23 36.0 C L 88 16 139/85 10/09/24 07:21 92 H 10/09/24 03:52 36.8 C 81 20 132/89 10/08/24 22:32 83 10/08/24 22:07 37.4 C 97 H 16 129/84 10/08/24 21:30 88 19 123/85 10/08/24 21:00 100 H 20 122/90 10/08/24 20:51 102 H 16 115/88 10/08/24 18:03 95 H 17 10/08/24 17:38 92 H 10/08/24 17:20 10/08/24 17:20 36.9 C 86 20 141/107 H Pulse Ox O2 Del Method O2 Flow Rate 10/09/24 11:50 97 Nasal Cannula 2 10/09/24 11:40 96 Nasal Cannula 2 10/09/24 11:30 95 Nasal Cannula 2 10/09/24 11:23 99 Nasal Cannula 2 10/09/24 07:21 10/09/24 03:52 96 Room Air 10/08/24 22:32 10/08/24 22:07 97 Room Air 10/08/24 21:30 98 10/08/24 21:00 96 10/08/24 20:51 95 10/08/24 18:03 97 Room Air 10/08/24 17:38 10/08/24 17:20 Room Air 10/08/24 17:20 96 Room Air Pain Intensity Left Leg: Pain Intensity: 5 Transfer of Care Handoff Completed per policy Notes Mental Status: alert / awake / arousable Patient Amnestic to Procedure: Yes Nausea / Vomiting: adequately controlled Pain: adequately controlled Airway Patency, RR, SpO2: stable & adequate BP & HR: stable & adequate Hydration State: stable & adequate Anesthetic Complications: no major complications apparent and Pt Satisfied with anesthetic care
[2024-10-09] MEDS ORDERED: hydrALAZINE HCL 20 MG/ML VIAL IV PRN (12:34)
[2024-10-09] MEDS ORDERED: MoRPHine SULFATE 4 MG/ML 1 ML CARP\\VIAL IV PRN (12:34)
[2024-10-09] MEDS: MULTIVITAMIN TAB PO SCH (13:05)
[2024-10-09] MEDS: FOLIC ACID 1 MG TAB PO SCH (13:05)
[2024-10-09] MEDS: LABETALOL HCL IV 5 MG/ML 20ML IV ONE (13:06)
[2024-10-09] MEDS: KETOROLAC 30 MG/ML VIAL IV SCH (13:37)
[2024-10-09] MEDS: ACETAMINOPHEN 500 MG TAB PO SCH (13:37)
[2024-10-09] MEDS: MoRPHine SULFATE 4 MG/ML 1 ML CARP\\VIAL IV STA (13:37)
[2024-10-09] MEDS: ONDANSETRON INJ 2 MG/ML 2 ML VIAL IV PRN (13:38)
[2024-10-09] MEDS: THIAMINE HCL 100 MG TAB PO SCH (13:39)
--- NOTE | 2024-10-09 13:41 | Electrocardiogram Report ---
Test Reason : Blood Pressure : */* mmHG Vent. Rate : 97 BPM Atrial Rate : 97 BPM P-R Int : 214 ms QRS Dur : 94 ms QT Int : 344 ms P-R-T Axes : 39 3 38 degrees QTcB Int : 436 ms Sinus rhythm with 1st degree A-V block Otherwise normal ECG No previous ECGs available Confirmed by Jessica Andrade (Giselle) on 10/09/2024 1:40:43 PM Referred By: REFERRED SELF Confirmed By: Jessica Andrade
--- NOTE | 2024-10-09 14:31 | Hospitalist Progress Note ---
Date of Service October 09, 2024 Assessment & Plan (1) Tibia/fibula fracture: Plan: Traumatic left tib-fib fracture At risk alcohol intake Ongoing vape use s/p Open Reduction Internal Fixation of left distal comminuted fibula fracture, Intramedullary Colin Left distal Comminuted Tibia Fracture Surgeon: Jeremy Ventura MD Blood pressure slightly elevated likely secondary to underlying postop pain will order as needed oxycodone, morphine Placed on aspirin 81 mg daily for DVT prophylaxis per Ortho PT OT eval Monitor closely Patient denies alcohol withdrawal in the past even with stopping alcohol consumption Monitor closely with as needed Ativan for now DVT prophylaxis. ASA, SCDs Full code Admission and Anticipated Discharge Date Admission Date: October 08, 2024 Subjective Follow-up for left tibia/fibular fracture, etc. Status post surgery Seen resting in bed, sitting up, not in distress States he feels groggy Has 7 out of 10 pain over the surgical site Denies chest pain, palpitations, dizziness, nausea or vomiting Denies anxiety, tremors, confusion, hallucinations Patient admits he drinks about 8 bottles of beer per day Last drink yesterday States he has stopped drinking in the past but has not experienced any type of withdrawal symptoms No other new symptoms Review of Systems Review of Systems: all noted and negative except for above Physical Exam Physical Exam: General- oriented x 3, not in distress, speaks in sentences with no effort or accessory muscle use Eyes- anicteric Neck- no JVD Lungs- clear breath sounds bilaterally, no rales/wheezes Heart- normal rate, regular rhythm; no murmurs Abdomen- normal bowel sounds, nondistended, soft, nontender Extremities- no pretibial edema, no calf tenderness Left lower extremity: Heavy dressing in place No edema noted No tremors noted Neuro- alert, oriented x 3; no gross focal neurologic deficits Skin- warm & dry Results & Data Results & Data Vital Signs (Past 12 Hours) Vital Signs Temp Pulse Pulse Pulse Resp BP Pulse Ox 10/09/24 13:33 36.5 C 80 16 141/93 H 95 10/09/24 13:00 36.7 C 75 16 141/80 H 96 10/09/24 12:54 36.6 C 78 18 144/97 H 93 10/09/24 12:20 76 16 152/96 H 97 10/09/24 12:10 78 17 149/105 H 96 10/09/24 12:00 77 16 159/110 H 96 10/09/24 11:50 36.7 C 85 15 162/110 H 97 10/09/24 11:40 84 10 L 152/115 H 96 10/09/24 11:30 82 18 128/110 H 95 10/09/24 11:23 36.0 C L 88 16 139/85 99 10/09/24 07:21 92 H 10/09/24 03:52 36.8 C 81 20 132/89 96 O2 Del Method O2 Flow Rate 10/09/24 13:33 Room Air 10/09/24 13:00 Room Air 10/09/24 12:54 Room Air 10/09/24 12:20 Nasal Cannula 2 10/09/24 12:10 Nasal Cannula 2 10/09/24 12:00 Nasal Cannula 2 10/09/24 11:50 Nasal Cannula 2 10/09/24 11:40 Nasal Cannula 2 10/09/24 11:30 Nasal Cannula 2 10/09/24 11:23 Nasal Cannula 2 10/09/24 07:21 10/09/24 03:52 Room Air all noted and reviewed including below
[2024-10-09] MEDS: SODIUM CHLORIDE 0.9% 1,000 ML IV SCH (15:19)
--- NOTE | 2024-10-09 15:24 | Orthopedic Progress Note ---
Date of Service October 09, 2024 Assessment & Plan (1) Comminuted fracture of shaft of tibia: Plan: I showed him his fluoroscopic images. Patient is nonweightbearing on the left lower extremity in the splint using crutches, a walker, or a knee scooter. PT OT tomorrow morning. Gait training. Work on knee ROM. Continue perioperative IV antibiotics Attempt to wean off IV pain medications to orals as tolerated. Elevate the left lower extremity on pillows Continue neurovascular checks ASA for DVT prophylaxis Should be okay to discharge home tomorrow pending PT OT. (2) Comminuted fracture of shaft of fibula: Admission and Anticipated Discharge Date Admission Date: October 08, 2024 Subjective Patient seen and examined on afternoon rounds. Postop day 0 following intramedullary janeth for comminuted left tibia fracture and open reduction internal fixation comminuted left fibula fracture. He reports his pain is so much better than it was before surgery. Denies fevers chills chest pain and shortness of breath. Physical Exam Physical Exam: On exam he is resting comfortably in bed in no acute distress. He reports his splint is well-fitting. He is able to wiggle his toes. He is sensory intact to light touch over the toes although he says he has just a little bit of numbness. Results & Data Vital Signs (Past 12 Hours) Vital Signs Temp Pulse Pulse Pulse Resp BP Pulse Ox 10/09/24 14:46 36.7 C 71 16 134/88 96 10/09/24 13:33 36.5 C 80 16 141/93 H 95 10/09/24 13:00 36.7 C 75 16 141/80 H 96 10/09/24 12:54 36.6 C 78 18 144/97 H 93 10/09/24 12:20 76 16 152/96 H 97 10/09/24 12:10 78 17 149/105 H 96 10/09/24 12:00 77 16 159/110 H 96 10/09/24 11:50 36.7 C 85 15 162/110 H 97 10/09/24 11:40 84 10 L 152/115 H 96 10/09/24 11:30 82 18 128/110 H 95 10/09/24 11:23 36.0 C L 88 16 139/85 99 10/09/24 07:21 92 H 10/09/24 03:52 36.8 C 81 20 132/89 96 O2 Del Method O2 Flow Rate 10/09/24 14:46 Room Air 10/09/24 13:33 Room Air 10/09/24 13:00 Room Air 10/09/24 12:54 Room Air 10/09/24 12:20 Nasal Cannula 2 10/09/24 12:10 Nasal Cannula 2 10/09/24 12:00 Nasal Cannula 2 10/09/24 11:50 Nasal Cannula 2 10/09/24 11:40 Nasal Cannula 2 10/09/24 11:30 Nasal Cannula 2 10/09/24 11:23 Nasal Cannula 2 10/09/24 07:21 10/09/24 03:52 Room Air
[2024-10-09] MEDS: ceFAZolin 2000MG 2,000 MG/15 ML SYR IV SCH (18:01)
[2024-10-09] MEDS: SENNA 8.6 MG TAB PO SCH (21:30)
[2024-10-09] MEDS: DOCUSATE SODIUM 100 MG CAP PO SCH (21:30)
[2024-10-10 04:23] VITALS: TEMP 98.2
[2024-10-10 07:18] VITALS: BP 133/79; PULSE 75; RESP 16; O2SAT 99
[2024-10-10 08:10] LABS: Hematocrit (blood only) 36.6 % (42.0-52.0); Hemoglobin 12.7 g/dl (14.0-18.0); Mean Corpuscular Hemoglobin 31.6 pg (25.0-34.0); Mean Corpuscular Hgb Conc 34.7 g/dL (32.0-36.0); Mean Platelet Volume 9.9 fL (9.4-12.4); Platelet Count 233 K/uL (130-400); RDW Standard Deviation 39.9 fL (36.4-46.3); Red Blood Count 4.02 M/uL (4.70-6.10)
[2024-10-10 08:27] LABS: BUN Creatinine Ratio 11.5 (10-20); Calcium 9.1 mg/dl (8.6-10.3); Creatinine Clr Calc Pharmacy 111.7 ml/min; Potassium 4.4 mmol/L (3.5-5.1)
[2024-10-10] MEDS ORDERED: MULTIVITAMIN TAB PO SCH (09:00)
--- NOTE | 2024-10-10 09:36 | Orthopedic Progress Note ---
Date of Service October 10, 2024 Assessment & Plan (1) Comminuted fracture of shaft of tibia: Plan: Patient is nonweightbearing on the left lower extremity in the splint using crutches, a walker, or a knee scooter for the next 2 weeks PT/OT Gait training. Work on knee ROM. Continue pain control per primary with PO meds. Elevate the left lower extremity on pillows and ice ASA 81mg BID x 30 days Stable for discharge from ortho standpoint pending PT/OT. FUP in office in 2 weeks with x rays in splint. If xrays look okay can d/c splint and he can begin TTWB (does not needs any boot or external splint at that time), progress to full ROM @ 2-4 weeks Admission and Anticipated Discharge Date Admission Date: October 08, 2024 Subjective Pt seen and examined bedside. POD 1 s/p ORIF distal tibia and fibula with Dr Ventura. He says he is doing well. Eager to get out of bed. No major pain. Only needing tylenol. No n/t. Physical Exam Physical Exam: LLE: Splint in place, C/D/I and fitting appropriately. He is able to slightly bend his knee. He can wiggle his toes. NVID. Results & Data Vital Signs (Past 12 Hours) Vital Signs Temp Pulse Pulse Resp BP Pulse Ox O2 Del Method 10/10/24 08:00 Room Air 10/10/24 07:16 36.8 C 75 16 133/79 99 Room Air 10/10/24 04:22 36.8 C 81 20 132/84 98 Room Air 10/09/24 23:35 36.9 C 84 20 129/77 95 Room Air Laboratory Results 10/10/24 Range/Units 07:45 WBC 8.70 (4.8-10.8) K/ul RBC 4.02 L (4.70-6.10) M/uL Hgb 12.7 L (14.0-18.0) g/dl Hct 36.6 L (42.0-52.0) % MCV 91.0 (80.0-100.0) fL MCH 31.6 (25.0-34.0) pg MCHC 34.7 (32.0-36.0) g/dL RDW Std Deviation 39.9 (36.4-46.3) fL RDW Coeff of Melina 12.0 (11.5-14.5) % Plt Count 233 (130-400) K/uL MPV 9.9 (9.4-12.4) fL Sodium 139 (136-145) mmol/L Potassium 4.4 (3.5-5.1) mmol/L Chloride 106 (98-107) mmol/L Carbon Dioxide 31 (21-32) mmol/L Anion Gap 2 L (3-11) BUN 10 (6-23) mg/dl Creatinine 0.87 (0.6-1.4) mg/dl Est Cr Clr Drug Dosing 111.7 ml/min eGFR 111.17 BUN/Creatinine Ratio 11.5 (10-20) Glucose 95 (70-99(Fasting)) mg/dl Calcium 9.1 (8.6-10.3) mg/dl
[2024-10-10] MEDS: dexAMETHasone 4 MG TAB PO SCH (11:11)
[2024-10-10] MEDS: oxyCODONE HCL IR 5 MG TAB (IMMEDIATE RELEASE) PO PRN (11:11)
[2024-10-10] MEDS: ASPIRIN 81 MG ECTAB PO SCH (11:12)
--- NOTE | 2024-10-10 12:18 | Hospitalist Progress Note ---
Date of Service October 10, 2024 Assessment & Plan (1) Tibia/fibula fracture: Plan: Traumatic left tib-fib fracture 10/09/24 s/p Open Reduction Internal Fixation of left distal comminuted fibula fracture, Intramedullary Colin Left distal Comminuted Tibia Fracture Surgeon: Jeremy Ventura MD per ortho: Patient is nonweightbearing on the left lower extremity in the splint using crutches, a walker, or a knee scooter for the next 2 weeks PT/OT Gait training. Work on knee ROM. Continue pain control per primary with PO meds.--> PRN Celebrex and Oxycodone Elevate the left lower extremity on pillows and ice ASA 81mg BID x 30 days Stable for discharge from ortho standpoint pending PT/OT--> seen by PT/OT, ok for discharge FUP in office in 2 weeks with x rays in splint. If xrays look okay can d/c splint and he can begin TTWB (does not needs any boot or external splint at that time), progress to full ROM @ 2-4 weeks Alcohol Intake 8 beers per day Patient denies alcohol withdrawal in the past even with stopping alcohol consumption -- no signs of alcohol withdrawal observed -- advised alcohol cessation Vape use -- advised cessation d/c home ff up with Ortho in 2 weeks per above Admission and Anticipated Discharge Date Admission Date: October 08, 2024 Subjective ff up for tib/fib fx s/p ORIF seen resting in bed, comfortable in good spirits states he feels fine overall minimal pain over the surgical site no chest pain, dyspnea, palpitations, dizziness ambulating with the use of crutch- no issues no tremors, anxiety, etc states he is ready for discharge today Review of Systems Review of Systems: all noted and negative except for above Physical Exam Physical Exam: General- oriented x 3, not in distress, speaks in sentences with no effort or accessory muscle use Eyes- anicteric Neck- no JVD Lungs- clear breath sounds bilaterally, no crackles/wheezing Heart- normal rate, regular rhythm; no murmurs Abdomen- normal bowel sounds, nondistended, soft, nontender Extremities- no pretibial edema, no calf tenderness LLE: heavy dressing, splint in place Neuro- alert, oriented x 3; no gross focal neurologic deficits Skin- warm & dry Results & Data Results & Data Vital Signs (Past 12 Hours) Vital Signs Temp Pulse Pulse Resp BP Pulse Ox O2 Del Method 10/10/24 08:00 Room Air 10/10/24 07:16 36.8 C 75 16 133/79 99 Room Air 10/10/24 04:22 36.8 C 81 20 132/84 98 Room Air all noted and reviewed including below
--- NOTE | 2024-10-10 12:31 | Discharge Summary ---
Discharge Summary Date of Service October 10, 2024 Principal Dx & Hospital Course #1 = Principal Diagnosis (1) Tibia/fibula fracture: Traumatic left tib-fib fracture 10/09/24 s/p Open Reduction Internal Fixation of left distal comminuted fibula fracture, Intramedullary Colin Left distal Comminuted Tibia Fracture Surgeon: Jeremy Ventura MD per ortho: Patient is nonweightbearing on the left lower extremity in the splint using crutches, a walker, or a knee scooter for the next 2 weeks PT/OT Gait training. Work on knee ROM. Continue pain control per primary with PO meds.--> PRN Celebrex and Oxycodone Elevate the left lower extremity on pillows and ice ASA 81mg BID x 30 days Stable for discharge from ortho standpoint pending PT/OT--> seen by PT/OT, ok for discharge FUP in office in 2 weeks with x rays in splint. If xrays look okay can d/c splint and he can begin TTWB (does not needs any boot or external splint at that time), progress to full ROM @ 2-4 weeks Alcohol Intake 8 beers per day Patient denies alcohol withdrawal in the past even with stopping alcohol consumption -- no signs of alcohol withdrawal observed -- advised alcohol cessation Vape use -- advised cessation d/c home ff up with Ortho in 2 weeks per above Notes For Next Care Provider Medication Changes From Visit Aspirin 81 mg p.o. twice daily x 30 days Celebrex 20 mg twice daily x 10 days, as needed Oxycodone 5 mg every 4-6 hours as needed Tylenol 650 mg every 4-6 hours as needed Docusate as needed Admission HPI Per Admitting Provider History obtained from patient, family, and records. Medical history significant for mood disorder, urolithiasis, chronic left rotator cuff syndrome, daily alcohol intake, ongoing vape use Patient slipped on some ice as he was to go back inside his house patient lost balance and landed on his left leg. Patient heard something crack. Achy left lower leg pain. No head trauma/LOC, no chest pain, no SOB. EMS summoned to patient's home. 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 Admission Exam Per Admitting Provider GENERAL: Comfortable, slightly anxious, pleasant, no respiratory distress SKIN: Normal color, warm HEENT: [place] palpebral conjunctivae, no ptosis, moist buccal mucosa NECK : Supple, no tenderness CHEST : CTA, no tenderness HEART : RRR, no obvious murmurs ABDOMEN: Some distention, nontender EXTREMITIES : LLE splint, no other conspicuous deformities noted NEUROLOGIC : Coherent, no facial asymmetry, no other gross focality Discharge Exam General- oriented x 3, not in distress, speaks in sentences with no effort or accessory muscle use Eyes- anicteric Neck- no JVD Lungs- clear breath sounds bilaterally, no crackles/wheezing Heart- normal rate, regular rhythm; no murmurs Abdomen- normal bowel sounds, nondistended, soft, nontender Extremities- no pretibial edema, no calf tenderness LLE: heavy dressing, splint in place Neuro- alert, oriented x 3; no gross focal neurologic deficits Skin- warm & dry Updated Medication List Medication Instructions Recorded Confirmed Type acetaminophen 325 mg tablet 650 mg (2 x 325 mg) PO Q6H PRN 10/10/24 Rx (Tylenol) mild to moderate pain 10 days #20 tabs aspirin 81 mg tablet,delayed 81 mg PO BID 30 days #60 tabs 10/10/24 Rx release celecoxib 200 mg capsule (Celebrex) 200 mg PO BID PRN moderate to 10/10/24 Rx severe pain #10 caps docusate sodium 100 mg capsule 100 mg PO BID PRN while taking 10/10/24 Rx oxycodone #14 caps oxycodone 5 mg tablet 5 mg PO Q4H PRN severe pain (scale 10/10/24 Rx score 7-10) #10 tabs Hospital Stay Data Consultations 10/08/24 18:45 Consult Orthopedic Surgery Routine 10/08/24 19:08 ED Decision to Admit Stat Procedures Performed Operation Date: 10/09/24 07:30 Actual Procedures p Open Reduction Internal Fixation of left distal comminuted fibula fracture, Intramedullary Colin Left distal Comminuted Tibia Fracture(Left) - Jeremy Ventura MD Diagnostic Imagining Performed 10/09/24 07:30 FL tibia/fibula LT 2V Routine COMPARISON: No relevant priors. FINDINGS/IMPRESSION: Comminuted, mildly displaced fractures of the distal fibula and tibial shafts. Remaining osseous structures intact. No dislocation. Soft tissue swelling. Pending Results Patient Have Any Pending Studies at Discharge: No Discharge Instructions Given to Patient (Per Discharging Provider) Post-operative Instructions Dear Patient and Family/Friends, Before you are discharged from the hospital, it is important to know what to expect when you get home after surgery. To that end, we have created this sheet of discharge instructions which covers many commonly asked questions. Make sure you go through this sheet in its entirety with your nurse before you are discharged. Please note that we will go over the specifics of your surgery and recovery when you return for your first post-operative visit. Sincerely, Dr. Ventura Pain Expect to be in a fair amount of pain after surgery. Remember, our goal is not to eliminate your pain, but to make it tolerable. It is a good idea to stay ahead of your pain by taking the medications you were prescribed once you get home. Typically, the pain starts improving 3-7 days after surgery. You should start weaning off the narcotic pain medication (oxycodone, hydrocodone, hydromorphone, morphine) as soon as your pain improves. Please call our office if your pain is not adequately controlled. Ice Ice your operative site at least 5 times a day for 15-30 minutes at a time. Make sure you have a thin cloth between the ice or cooling unit and your skin to prevent orta bite. This is especially important if you received a nerve block. Continue icing your operative site for the first 5-7 days after surgery, then as needed. Diet/Nausea/Vomiting Start by drinking clear liquids and eating crackers. If you can tolerate this, then you may resume your normal diet. If you feel nauseated or vomit, take Zofran/ondansetron (if prescribed). Please call our office if you have intractable nausea or vomiting, or, if after hours, you may go to the Emergency Room for help. Constipation Constipation is a common side effect of narcotic pain medication. If you have not had a bowel movement within 2 days after surgery, we recommend purchasing an over the counter laxative such as Milk of Magnesia, Dulcolax, or Miralax from a local pharmacy, and taking it as instructed. Call our clinic if any questions. Slings and Braces If you were placed in a sling or brace, it must be worn at all times, including sleep. You may remove your sling or brace for physical therapy, home exercises, and showering. The length of time you will be in your brace and range of motion restrictions depends on what surgery you had; these details will be reviewed at your first post-operative appointment. Weight bearing and Range of Motion. Do not bear any weight through your operative extremity immediately after surgery. If you had upper extremity surgery, do not lift anything with that arm. If you are in a knee brace, keep it locked in place until your follow-up. We will discuss your weight bearing, range of motion, and lifting restrictions in detail at your first post-operative appointment. Continuous Passive Motion (CPM) Machine If you were prescribed a CPM machine, it will start after your first post- operative appointment, at which time we will give you instructions on the range of motion settings and duration of treatment Physical therapy You will be given a prescription for physical therapy or occupational therapy at your first post-operative appointment. Typically, patients start therapy within 1 week of surgery Wound care and showering We will inspect your wound at your first post-operative visit, and may do a dressing change at that time. Most patients will be in a water-proof dressing that is removed 14 days after surgery. It is normal to see some dried blood on the dressing. Do not remove your dressing, paper strips or sutures yourself unless you are given permission. Showering is allowed the day after surgery. Do not scrub or remove any dressings. The wound should not be submerged underwater (i.e. in a bathtub or pool) until 4 weeks after surgery RENA stockings If you were given white stockings, these are to be worn at all times except to shower (on both legs) for the first 2 weeks after surgery. Driving You may not drive while taking narcotic pain medication or while in a cast, splint, sling or brace. You, the patient, need to make the final determination about when you are safe to drive, however, the earliest you may consider driving after surgery is below: Hand/Wrist/Elbow Surgery: 3 days Shoulder Surgery: 2 weeks Hip,/Knee/Ankle Surgery: 4 weeks Fracture repair: 6 weeks Return to Work Your return to work depends on what surgery was done and what type of work you do. Please bring any paperwork your employer needs completed to your first post-operative visit. Also, bring a description of your job duties, as this helps us to understand what risks you may face at work. Travel Avoid long distance travel (greater than 1 hour) in airplanes and cars for the first 6 weeks after surgery. If you must travel, you need to have a Doppler ultrasound done before you travel to rule out a blood clot in your legs. Follow-up You should have a follow-up appointment already scheduled 1-2 days after surgery. If not, please contact our office to make this appointment before you leave the hospital. When to call the office It is normal to have swelling and bruising in the limb that was operated on. This will improve with time. It is also normal to have fevers for the first 2 days after surgery. Reasons you should call your doctor include: Uncontrolled pain; Nausea, vomiting, or constipation that does not improve with medication; Fevers over 101.5, chills, sweats; Drainage or bleeding from the wound; Foul odor; Spreading areas of redness; Any other concerns. Contact Information Please call Dr. Ventura's office at [phone] with any concerns. PLEASE REFER TO YOUR NEW MEDICATION LIST AND FOLLOW INSTRUCTIONS CAREFULLY. YOUR NEW MEDICATIONS INCLUDE: Aspirin 81 mg twice a day for 30 days -For blood clot prevention after surgery -Always take with food to prevent stomach ulcers Celebrex -As needed for moderate to severe pain -Always take with food as well to prevent stomach ulcer -Drink plenty of water while taking aspirin and Celebrex to prevent kidney injury Oxycodone -As needed for severe pain -Do not consume alcohol while using this medication to adverse side effects including confusion, respiratory depression, etc. -Use docusate stool softener while taking this medication Tylenol -As needed for mild to moderate pain -Do not take more than 3000 mg/day Please elevate your left lower extremity on pillows and ice. Always take your medications only as directed. No smoking or alcohol. PLEASE CALL YOUR Orthopedic surgeon OR RETURN TO THE ER IF WITH WORSENING OF SYMPTOMS, INCLUDING Increasing leg pain, bleeding, weakness, swelling, etc. FOLLOW UP WITH PRIMARY CARE PHYSICIAN OUTLINED ABOVE. Follow-up with orthopedic surgeon Dr. De/GURINDER Pastrana in 2 weeks. Total Time Total Time Spent Total Time Spent (In Minutes): 45 minutes
[2024-10-10] MEDS ORDERED: CeleBREX 200 MG CAP PO SCH (21:00)
== END 2024-10-10 13:23 | disposition home or self-care (01) | DRG 494 ==
LOC: ED 17:17 → INTOOBSV 20:29 → 2N 20:29 → 3N 10-09 11:24